=== PATIENT | female | born 1945 | race Caucasian/White ===

== ENCOUNTER 2020-04-02 15:40 | Outpatient (CLI) | payer OTHER, SELFPAY ==
--- NOTE | ~2020-04-02 | XR_ITS ---
EXAMINATION: XR knee RT 3V DATE: 04/02/2020 16:55 INDICATION: Right knee pain. TECHNIQUE: 3 views of right knee were obtained. COMPARISON: None. FINDINGS: Bone alignment is normal. No fracture. Joint spaces are well maintained. There is no knee j oint effusion. IMPRESSION: 1. Normal right knee. Reviewed, dictated and finalized at location D. IMPRESSION: 1. Normal right knee.
--- NOTE | ~2020-04-02 | US_ITS ---
EXAMINATION: US venous doppler LE RT DATE: 04/02/2020 16:22 INDICATION: Right lower limb pain TECHNIQUE: Grayscale ultrasound images without and with compression and Doppler ultrasound images of the right lower extremity veins were obtained. COMPARISON: None. FINDINGS: The visualized portions of right common femoral vein, profunda (deep) femoral vein, femoral vein, pop liteal vein, peroneal trunk, posterior tibial veins, gastrocnemius vein and greater saphenous vein ou tflow are patent. IMPRESSION: 1. No deep venous thrombosis in the right lower limb. Reviewed, dictated and finalized at location A.
== END 2020-04-02 15:41 | disposition home or self-care (01) ==
PROVIDERS: PCP Internal Medicine; Visit Provider Nurse Practitioner
DX: R60.0 Localized edema (principal); M25.561 Pain in right knee
CPT/HCPCS: 73562; 93971

== ENCOUNTER → 2020-04-30 12:49 | Outpatient (CLI) | payer OTHER, SELFPAY ==
--- NOTE | ~2020-04-30 | MR_ITS ---
EXAMINATION: MR knee RT wo con DATE: 04/30/2020 13:40 INDICATION: Right knee pain TECHNIQUE: Magnetic resonance imaging (MRI) of the right knee was performed without intravenous contr ast. Sequences included coronal PD-weighted FSE, coronal PD-weighted FS FSE, sagittal T2-weighted FS E, sagittal PD-weighted FS FSE and axial PD weighted fat saturated FSE. COMPARISON: None. FINDINGS: Medial compartment: Medial meniscus is normal. Partial-thickness cartilage loss and chondral surface regularity along the weightbearing medial femoral condyle and medial tibial plateau. Lateral compartment: There is a small radial tear involving the inner third of the body of the lateral meniscus. Partial-t hickness cartilage loss with smooth chondral surface along the posterior weightbearing lateral femora l condyle. Patellofemoral compartment: Deep chondral ulceration at the lateral aspect of the medial patellar facet with underlying mild suba rticular edema. Additional partial thickness cartilage loss at the apical ridge and lateral facet wit h deep fissuring and additional mild subarticular edema at the apical ridge. Trochlear cartilage appe ars relatively preserved. Ligaments and tendons: Anterior and posterior cruciate ligaments are normal. The medial collateral ligament and fibular bernie ateral ligament complex are normal. Small enthesophytes at the distal aspect of the quadriceps tendon . The patellar tendon is normal. The visualized medial and lateral hamstring tendons as well as the i liotibial band are normal. Fluid: Physiologic amount of fluid in the joint space. No loose osteochondral bodies identified. Mild prepat ellar edema without discrete bursal fluid collection. Osseous/other: Normal marrow signal aside from a mild subarticular edema at the patella. No fracture or pathologic m arrow replacing process. There is mild fatty atrophy in the visual is distal aspect of the semimembra nosus. IMPRESSION: 1. Radial tear at the lateral meniscus. 2. Mild medial and patellofemoral osteoarthritis with moderate grade chondral malacia the former and high-grade patellar chondromalacia at the latter. Reviewed, dictated and finalized at location A. E CHEF IMPRESSION: 1. Radial tear at the lateral meniscus. 2. Mild medial and patellofemoral osteoarthritis with moderate grade chondral m alacia the former and high-grade patellar chondromalacia at the latter.
== END ==
PROVIDERS: PCP Internal Medicine; Visit Provider Nurse Practitioner Family
DX: S83.281A Other tear of lateral meniscus, current injury, right knee, initial encounter (principal); X58.XXXA Exposure to other specified factors, initial encounter; M17.11 Unilateral primary osteoarthritis, right knee
CPT/HCPCS: 73721

== ENCOUNTER 2020-07-27 07:35 | Outpatient (CLI) | payer OTHER, SELFPAY ==
--- NOTE | ~2020-07-27 | DEXA_ITS ---
Bone Density Report Name: Florinda Cano Age: 75 Sex: Female Ethnicity: White Date of : 1945 Indication: postmenopausal; Referring Provider: KELL LEE Study: Bone densitometry was performed. Exam Date: July 27, 2020 Accession number: [id number] Bone Density: Region BMD T-score Z-score Classification AP Spine (L2, L3, L4) 0.926 -1.4 1.0 Osteopenia Femoral Neck (Left) 0.708 -1.3 0.7 Osteopenia Total Hip (Left) 0.894 -0.4 1.3 Normal Total Hip Bilateral Avg 0.881 -0.5 1.2 Normal Femoral Neck (Right) 0.635 -1.9 0.1 Osteopenia Total Hip (Right) 0.868 -0.6 1.1 Normal World Health Organization criteria for BMD impression classify patients as: Normal (T-score at or above -1.0), Osteopenia (T-score between -1.0 and -2.5), or Osteoporosis (T-score at or below -2.5). 10-year Fracture Risk(1): Major Osteoporotic Fracture 11% Hip Fracture 2.2% Reported Risk Factors: [place] (), Neck BMD=0.635, BMI=41.2 (1) FRAX(R) Version 3.08. Fracture probability calculated for an untreated patient. Fracture probability may be lower if the patient has received treatment. Clinical Information Provided by Patient: Patient maximum height was 62 Menopause Age: 52 No regular weight bearing exercise Onset of menses at age 15 Number of children 3 Impression: The patient has low bone mass, based on the Right Femoral Neck T-score. The patient has an estimated ten-year risk of hip fracture of 2.2% and an estimated ten-year risk of major fracture of 11%, based on the WHO FRAX algorithm. Discussion: BONE DENSITY IS LOW AT ONE OR MORE SKELETAL SITES. This patient's lowest T-score is low at one or more skeletal sites. It meets the World Health Organization's (WHO) criteria for ?low bone mass? (T-score between -1.0 and -2.5). The patient's 10-year risk of fracture as calculated by FRAX is less than the threshold where pharmacological therapy is recommended by the National Osteoporosis Foundation (NOF). However, all treatment decisions require clinical judgment and consideration of individual patient factors, including patient preferences, comorbidities, previous drug use, risk factors not captured in the FRAX model (e.g., frailty, falls, vitamin D deficiency, increased bone turnover, interval significant decline in bone density) and possible under or overestimation of fracture risk by FRAX. The patient should follow a healthful lifestyle (good nutrition with adequate calcium and vitamin D, and appropriate weight-bearing exercise). Follow-Up: Consider repeating this study in 2 to 3 years to reassess this patient's status, or sooner if there is some new clinical indication. Reported by: [facility] on 07/27/2020 8:08:00 AM. Reviewed, dictated and finalized at loca
--- NOTE | ~2020-07-27 | MM_ITS ---
EXAMINATION: MM scrn laila implant BI w orin HISTORY: Screening mammogram TECHNIQUE: Craniocaudal and mediolateral oblique 3-D tomosynthesis images with implant displacement a nd synthetic 2-D images were generated. Craniocaudal and mediolateral oblique views of the breasts wi thout implant displacement were obtained using full field digital mammography. CAD analysis was submi tted and interpreted. COMPARISON: 07/18/2016 BREAST PARENCHYMAL COMPOSITION: There are scattered areas of fibroglandular density. FINDINGS: Scattered benign-appearing calcifications are present. There is no evidence of suspicious m ass, calcification, or architectural distortion to suggest malignancy in either breast. There has bee n no suspicious interval change. IMPRESSION: 1. No mammographic evidence of malignancy. 2. Recommend routine screening mammography in one year. BI-RADS Category 2: Benign finding(s). Reviewed, dictated and finalized at location A. [employer]
== END 2020-07-27 07:36 | disposition home or self-care (01) ==
LOC: ANHIMG 07:39
PROVIDERS: PCP Internal Medicine; Visit Provider Internal Medicine
DX: Z12.31 Encounter for screening mammogram for malignant neoplasm of breast (principal); Z78.0 Asymptomatic menopausal state; M85.89 Other specified disorders of bone density and structure, multiple sites
CPT/HCPCS: 77063; 77067; 77080

== ENCOUNTER 2020-10-12 07:01 | Outpatient (CLI) | payer OTHER, SELFPAY ==
[2020-10-12 07:48] LABS: Alanine Aminotransferase 14 U/L (4-35); Albumin Level 4.1 g/dL (3.5-5.1); Alkaline Phosphatase 41 U/L (38-126); Anion Gap 7 mmol/L (8-16); Aspartate Amino Transferase 21 U/L (14-36); Bilirubin,Total 0.6 mg/dL (0.2-1.3); Blood Urea Nitrogen 17 mg/dL (7-17); Carbon Dioxide 26 mmol/L (22-30); Chloride 107 mmol/L (98-107); Cholesterol 183 mg/dL (0-200); Estimated Glomerular Filt Rate > 60; Glucose 100 mg/dL (65-105); HDL Direct 46 mg/dL; Potassium 3.8 mmol/L (3.4-5.0); Sodium 140 mmol/L (137-145); Triglycerides 135 mg/dL (<150)
[2020-10-12 07:59] LABS: LDL Cholesterol Direct 110 mg/dL
== END 2020-10-12 07:02 | disposition home or self-care (01) ==
PROVIDERS: PCP Internal Medicine; Visit Provider Internal Medicine
DX: E78.5 Hyperlipidemia, unspecified (principal); E03.9 Hypothyroidism, unspecified; I10 Essential (primary) hypertension; Z79.899 Other long term (current) drug therapy
CPT/HCPCS: 36415; 80053; 80061; 84443

== ENCOUNTER 2020-11-12 13:19 | Outpatient (CLI) | payer OTHER, SELFPAY ==
--- NOTE | 2020-11-12 13:23 | ECHO_ITS ---
Patient Info Name: Florinda Cano Age: 75 years : 1945 Gender: Female Ht: 62 in Wt: 238 lbs BSA: 2.24 m2 HR: 61 bpm BP: 188 / 92 mmHg Technical Quality: Fair Exam Date: 11/12/2020 1:51 PM Exam Location: [facility] Patient Status: Outpatient Admit Date: 11/12/2020 Staff Ordering Physician: Michael Wiggins DO Skewer Up: Sumi Brown RDCS Attending Provider: Michael Wiggins DO Referring Physician: Feliciano العلي; Exam Type: CA echo doppler color flow Study Info Indications I50.32 - Chronic diastolic (congestive) heart failure Complete two-dimensional, color flow and Doppler transthoracic echocardiogram is performed. Summary 1. Complete two-dimensional, color flow and Doppler transthoracic echocardiogram is performed. 2. Left ventricular chamber dimension is normal. 3. Left ventricular systolic function is normal, estimated at 65-70%. 4. There is mildly increased left ventricular wall thickness. 5. The left ventricular diastolic function is grade III diastolic dysfunction. 6. E/e' 21 is elevated. 7. Global longitudinal strain is abnormal at -14.6%. 8. Left atrial chamber dimension is mildly enlarged. 9. Right atrial chamber dimension is mildly enlarged. 10. There is moderate aortic valve sclerosis. 11. There is mild aortic valve regurgitation. 12. The mitral valve has moderately calcified annulus. 13. There is mild mitral valve regurgitation. 14. There is mild tricuspid valve regurgitation. 15. Severe pulmonary hypertension, estimated pulmonary arterial systolic pressure is 67 mmHg. Left Ventricle E/e' 21 is elevated. Global longitudinal strain is abnormal at -14.6%. Left ventricular chamber dimension is normal. Left ventricular systolic function is normal, estimated at 65-70%. There is mildly increased left ventricular wall thickness. The left ventricular diastolic function is grade III diastolic dysfunction. Right Ventricle Right ventricular systolic function is normal with normal TAPSE 3.3 cm. Right ventricular chamber dimension is normal. Left Atria Left atrial chamber dimension is mildly enlarged. Right Atria Right atrial chamber dimension is mildly enlarged. Aortic Valve The aortic valve is trileaflet. There is moderate aortic valve sclerosis. There is no aortic valve stenosis. There is mild aortic valve regurgitation. Pulmonic Valve There is no pulmonic regurgitation. Mitral Valve The mitral valve has moderately calcified annulus. There is no mitral valve stenosis. There is mild mitral valve regurgitation. Tricuspid Valve There is mild tricuspid valve regurgitation. Severe pulmonary hypertension, estimated pulmonary arterial systolic pressure is 67 mmHg. Pericardium/Pleural There is no pericardial effusion. Inferior Vena Cava Normal inferior vena cava with >50% collapse upon inspiration consistent with normal right atrial pressure, 5 mmHg. Aorta The aortic root size at the sinus of Valsalva is normal. Left Ventricular Outflow Tract Name Value Normal LVOT 2D LVOT Diameter 2.0 cm LVOT Doppler LVOT Peak Gradient 6 mmHg
== END 2020-11-12 13:20 | disposition home or self-care (01) ==
PROVIDERS: PCP Internal Medicine; Visit Provider Internal Medicine Cardiovascular Disease
DX: I50.32 Chronic diastolic (congestive) heart failure (principal); I34.0 Nonrheumatic mitral (valve) insufficiency; I35.1 Nonrheumatic aortic (valve) insufficiency; I36.1 Nonrheumatic tricuspid (valve) insufficiency
CPT/HCPCS: 93306

== ENCOUNTER 2021-03-23 08:07 | Observation (INO) | payer OTHER, SELFPAY ==
[2021-03-23] VITALS (19 sets, daily range): BP systolic 105–189; BP diastolic 47–79; PULSE 54–76; RESP 16–24; TEMP 36.2–37.1; O2SAT 93–97
--- NOTE | ~2021-03-23 | CT_ITS ---
EXAMINATION: CT abdomen pelvis w con EXAM DATE: 03/23/2021 09:51 INDICATION: RLQ abd pain . Right-sided abdominal pain. TECHNIQUE: Spiral CT of the abdomen and pelvis was performed following intravenous injection of 100 m L Omnipaque 350. Axial, coronal and sagittal images of the abdomen and pelvis were reviewed. The do se-length product (DLP) for this examination was 1377.74 mGy-cm. The exposure was tailored according to patient size (auto mA exposure control), and iterative reconstruction (ASIR) was used as addition al dose reduction technique. There is no prior study for comparison. FINDINGS: Several appendicoliths. The appendix appears obstructed, dilated, fluid-filled and with adj acent inflammation. No adjacent abscess. Diameter up to about 1.1 cm. Acute appendicitis. There is left adrenal gland nodularity, probably individual nodules largest measuring 1.5 cm. These a re statistically most likely adenomas but not meeting density criteria on this exam. The liver, splee n, adrenal glands and pancreas are otherwise unremarkable. Gallbladder is unremarkable. No biliary obstruction. Small renal lesions likely cysts. Portal and splenic veins are patent. Kidneys enhanc e symmetrically. There is no hydronephrosis. The uterus is unremarkable. The bladder is unremark able. There is no retroperitoneal or pelvic lymphadenopathy. There is mild to moderate scattered a rteriosclerotic disease. There is small sliding gastroesophageal hiatal hernia. There is mild scattered colonic diverticulosi s. There is no adjacent inflammatory change to suggest diverticulitis. No free intraperitoneal gas. The heart is normal in size. There are no pericardial or pleural effusions. The lung bases are u nremarkable. There are no osteoblastic or osteolytic lesions identified. IMPRESSION: 1. Acute uncomplicated appendicitis. 2. Several left adrenal nodules statistically most likely adenomas but not meeting density criteria on this postcontrast CT. If patient has known history of primary malignancy, consider follow-up MR. 3. Mild scattered colonic diverticulosis. 4. Cardiomegaly. I discussed acute appendicitis with ALAN Goodson in the emergency department. Reviewed, dictated and finalized at location A. IMPRESSION: 1. Acute uncomplicated appendicitis. 2. Several left adrenal nodules statistically most likely adenomas but not christina ting density criteria on this postcontrast CT. If patient has known history of primary malignancy, consider follow-up MR. 3. Mild scattered colonic diverticulosis. 4. Cardiomegaly. I discussed acute appendicitis with ALAN Goodson in the emergency department.
[2021-03-23 08:59] LABS: Basophils Absolute Auto 0.1 K/mm3 (0.0-0.1); Basophils Percent Auto 0.3 % (0.2-1.2); Eosinophils Percent Auto 0.1 % (0-4.4); Hematocrit 42.4 % (37.0-47.0); Hemoglobin 13.5 g/dL (12.0-15.0); Immature Granulocyte Absolute 0.09 K/mm3 (0.00-0.031); Immature Granulocyte Percent A 0.5 % (0-0.5); Lymphocytes Absolute Auto 0.81 K/mm3 (0.9-3.2); Lymphocytes Percent Auto 4.1 % (18.3-44.2); Mean Corpuscular HGB Conc 31.8 g/dl (32-36); Mean Corpuscular Hemoglobin 30.7 pg (26-34); Mean Corpuscular Volume 96.4 fl (80-100); Monocytes Absolute Auto 1.4 K/mm3 (0.1-0.6); Monocytes Percent Auto 7.2 % (2.6-8.5); Neutrophils Absolute Auto 17.5 K/mm3 (1.3-6.7); Neutrophils Percent Auto 87.8 % (45.5-73.1); Platelet Count Result 305 k/mm3 (150-375); Red Cell Distribution Width 15.5 % (11.5-14.5); White Blood Count 19.9 K/mm3 (4.5-10.0)
[2021-03-23 09:02] LABS: Add Urine Microscopic? YES; Appearance Urine Clear (Clear); Bacteria Urine Trace /hpf; Bilirubin Urine Negative (Negative); Blood Urine Negative (Negative); Color Urine Yellow (Yellow); Glucose Urine UA Negative (Negative); Ketones Urine Negative (Negative); Leukocyte Esterase Ur Negative LEU/UL (Negative); Mucus Urine Rare /lpf; Nitrate Urine Negative (Negative); Protein Urine 1+ mg/dL (Negative); Specific Grav Ur 1.025 (1.001-1.035); Squamous Epithelial Cell Urine Moderate /hpf (Few); WBC Urine 0-3 /hpf
[2021-03-23 09:07] LABS: Alanine Aminotransferase 16 U/L (4-35); Albumin Level 4.4 g/dL (3.5-5.1); Alkaline Phosphatase 36 U/L (38-126); Anion Gap 9 mmol/L (8-16); Aspartate Amino Transferase 30 U/L (14-36); Bilirubin,Total 1.6 mg/dL (0.2-1.3); Blood Urea Nitrogen 24 mg/dL (7-17); Calcium 9.1 mg/dL (8.4-10.2); Carbon Dioxide 25 mmol/L (22-30); Chloride 106 mmol/L (98-107); Estimated CRCL calculation 58 ml/min; Estimated Glomerular Filt Rate > 60; Glucose 109 mg/dL (65-110); Potassium 4.5 mmol/L (3.4-5.0); Sodium 140 mmol/L (137-145)
--- NOTE | 2021-03-23 09:15 | ED.ABDPAIN ---
HPI - Abdominal Pain General Chief Complaint: Abdominal Pain Stated Complaint: RLQ Abd Pain Time Seen by Provider: 03/23/21 08:53 Source: patient and family Mode of arrival: ambulatory Limitations: physical limitation (hx of aphasia secondary to CVA) History of Present Illness HPI narrative: Patient is a 76 female with a history of CVA, HTN, hypothyroidism, diastolic CHF, presenting for evaluation of RLQ abdominal pain. Pain in RLQ radiating to groin. Pain is moderate in nature. Pain began overnight. No recent fever or chills, no nausea or vomiting. No dysuria or hematuria. No constipation or diarrhea. No chest pain or dyspnea. Pt has been compliant with her medications. Last oral intake was yesterday over 12 hours ago. No history of nephrolithiasis. Has seen Dr. Wiggins with cardiology in the past. No significant lower extremity edema on exam. Related Data Home Medications Medication Instructions Recorded Confirmed polysaccharide iron complex 150 mg 150 mg PO DAILY 04/20/20 12/10/20 iron capsule Allergies Allergy/AdvReac Type Severity Reaction Status Date / Time No Known Allergies Allergy Verified 03/23/21 08:29 Review of Systems Review of Systems: CONSTITUTIONAL: Denies fever, reporting chills, denies diaphoresis EYES: Denies visual changes, redness, or discharge. ENT: Denies rhinorrhea, congestion, sore throat, or otalgia. CARDIOVASCULAR: Denies chest pain, palpitations, or edema. RESPIRATORY: Denies cough or dyspnea. GASTROINTESTINAL: Reporting RLQ abd pain without nausea or vomiting GENITOURINARY: Denies dysuria or hematuria. SKIN: Denies rash or itching. MUSCULOSKELETAL: Denies back pain, joint pain, or myalgia. NEUROLOGIC: Denies headache, numbness, or weakness. 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 Chronic diastolic (congestive) heart failure Constipation, unspecified Degenerative joint disease of knee JETT (dyspnea on exertion) Gastroesophageal reflux disease History of stroke with residual deficit History of tobacco abuse Insomnia due to medical condition Iron deficiency anemia Medial meniscus tear Mixed hyperlipidemia Obesity DARRYL (obstructive sleep apnea) PAF (paroxysmal atrial fibrillation) Postmenopausal Right knee DJD SOB (shortness of breath) Stress fracture Thyroid disease Surgical History Surgical History No significant past surgical history Family History Family History Sibling Patient's brother is in good health Other Family history of colonic diverticulitis Hypertension Social History Social History Social History: Her , Kale, is her healthcare POA. Smoking packs per day: 1 Smoking cigarettes per day: 20.0 Years smoked: 50 Smoking pack-years: 50.00 Smoking status: Current every day smoker Tobacco type: cigarettes Second hand tobacco smoke exposure: No Smoking end date: 06/26/16 Alcohol intake: current Substance use: never Substance use type: does not use Living arrangements: with family Additional living arrangements comments: Occupation/Education: other Gender identity (if verbalized by the patient): Female Sexual Orientation (if Verbalized by the Patient): Straight or Heterosexual Exam Narrative: GENERAL: Awake, alert, conversant, + chilled per patient, uncomfortable appearing HEAD: Normocephalic, atraumatic. EYES: PERRLA and EOMI. ENT: Nares clear, no rhinorrhea or epistaxis. Mucous membranes moist. NECK: Supple. CHEST: No respiratory distress, breathing even and non labored HEART: Regular rate, sinus rhythm ABDOMEN:Non distended, tender in the RLQ, + guarding, non rigid EXTREMITIES: Normal r
[2021-03-23 09:46] LABS: Lipase < 10 U/L (23-300)
[2021-03-23] MEDS: SODIUM CHLORIDE 0.9% IV 1,000 ML 999 ML IV CONT ×2 (09:55→12:05)
[2021-03-23] MEDS: MORPHINE SULFATE (*CRX) 4 MG/ML INJ IV PUSH (09:55)
[2021-03-23] MEDS: ONDANSETRON INJ 4 MG/2 ML VIAL IV PUSH ×3 (09:55→19:54)
--- NOTE | 2021-03-23 10:12 | ECG_ITS ---
Measurements Intervals [place] Rate: 62 P: 67 RI: 201 QRS: 102 QRSD: 92 T: 31 QT: 388 QTc: 395 Interpretive Statements SINUS RHYTHM RIGHT AXIS DEVIATION DELAYED PRECORDIAL R/S TRANSITION BASELINE ARTIFACT- I, II, III, AVR BORDERLINE ECG Electronically Signed On 03-23-2021 12:19:56 CDT by Michael Wiggins D.O.
[2021-03-23 11:52] LABS: INR 1.7; Prothrombin Time 19.5 Seconds (11.1-14.7)
[2021-03-23 11:53] LABS: Partial Thromboplastin Time 38.9 SECONDS (22.3-36.8)
--- NOTE | 2021-03-23 12:16 | PM.IMHP ---
H&P: HPI History of Present Illness Date/Time: 03/23/21 12:16 Chief Complaint: RLQ abdominal pain Narrative: This is a 76-year-old obese female who has a past medical history significant for a stroke 2.5 years ago now on chronic oral anticoagulation, paroxysmal atrial fibrillation, diastolic heart failure, hypertension, COPD, and tobacco abuse. Following the stroke, she continues to have residual expressive aphasia, therefore her history is provided by her and review of her electronic medical record. She had a sudden onset of RLQ abdominal pain that awoke her from sleep around 2-3 AM this morning. She got up to sit in the recliner and her pain continued to worsen. This was aggravated by movement and walking. She also reports chills and nausea, but no vomiting. With the unrelenting abdominal pain, they decided to present to the ER for evaluation this morning. CT scan of the abdomen and pelvis showed acute uncomplicated appendicitis with multiple appendicoliths present in the appendix and no evidence of perforation. Incidentally noted was several left adrenal nodules statistically most likely adenomas, mild scattered colonic diverticulosis, and cardiomegaly. Labs revealed a white blood cell count of 19,900. Our service was contacted by the ED physician for surgical evaluation of acute appendicitis. The patient is now seen in the ER. She reports pain has improved with IV Morphine but is still present. No significant nausea at this time or other complaints. No history of this abdominal pain in the past. No previous abdominal surgeries. The last dose of Xarelto she took was at 7:00 AM yesterday morning. She follows Dr. Wiggins as an outpatient for Cardiology and her most recent echocardiogram was in October of 2020. This showed grade III diastolic dysfunction, EF 65-70%, moderate aortic valve sclerosis, mild AVR, mild MVR, mild TVR, and severe pulmonary hypertension. No EKG yet performed in the ER. Review of Systems Review of Systems: ROS unobtainable: Yes unobtainable due to medical condition (limited d/t expressive aphasia, see HPI) Integumentary/Breasts: Comments: Bruising on her left foot from dropping a mop on her foot. 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 artery Chronic diastolic (congestive) heart failure Constipation, unspecified Degenerative joint disease of knee JETT (dyspnea on exertion) Gastroesophageal reflux disease History of stroke with residual deficit History of tobacco abuse Insomnia due to medical condition Iron deficiency anemia Medial meniscus tear Mixed hyperlipidemia Obesity DARRYL (obstructive sleep apnea) PAF (paroxysmal atrial fibrillation) Postmenopausal Right knee DJD SOB (shortness of breath) Stress fracture Thyroid disease Surgical History Surgical History No significant past surgical history Family History Family History Sibling Patient's brother is in good health Other Family history of colonic diverticulitis Hypertension Social History Social History Social History: Her , Kale, is her healthcare POA. Smoking packs per day: 1 Smoking cigarettes per day: 20.0 Years smoked: 50 Smoking pack-years: 50.00 Smoking status: Current every day smoker Tobacco type: cigarettes Second hand tobacco smoke exposure: No Smoking end date: 06/26/16 Alcohol intake: current Substance use: never Substance use type: does not use Living arrangements: with family Additional living arrangements comments: Occupation/Education: other Gender identity (if verbalized by the patient): Female Sexual Orientation (if Verbalized by the Patient): Straight or Heterosexual
[2021-03-23] MEDS: LACTATED RINGERS 1,000 ML 30 ML IV CONT ×2 (13:26→16:45)
--- NOTE | 2021-03-23 13:33 | WPDHPUPDATE1 ---
History and Physical Update Update Date/Time: 03/23/21 13:33 History and Physical has been reviewed, including an updated exam of the patient. There are NO changes in the patient's condition. Risks, benefits, and alternatives have been discussed and questions answered. Patient agrees to proceed with procedure.
--- NOTE | 2021-03-23 13:34 | WPDANESEPPF ---
Anes - Initial Pre Proc Eval Procedure: Operation Date: 03/23/21 14:00 Proposed Procedures p Laparoscopic Appendectomy - Gopi Riggs MD Date/Time: 03/23/21 13:34 Surgeon: Gopi Riggs MD Pre Op Diagnosis: RLQ Abd Pain Patient Data Age: 76 Gender: F Height: 1.55 m Weight: 99.7 kg Last Vital Signs Temp 36.6 C 03/23/21 13:20 Pulse 65 03/23/21 13:20 Resp 18 03/23/21 13:20 BP 153/51 H 03/23/21 13:20 Pulse Ox 96 03/23/21 13:20 Allergies Allergy/AdvReac Type Severity Reaction Status Date / Time No Known Allergies Allergy Verified 03/23/21 13:23 Home Medications Medication Instructions Recorded Confirmed Type polysaccharide iron complex 150 mg 150 mg PO DAILY 04/20/20 12/10/20 History iron capsule amiodarone 200 mg tablet 100 mg PO DAILY #90 tablet 04/23/20 12/10/20 Rx levothyroxine 175 mcg tablet See Rx Instructions .ROUTE 12/07/20 12/10/20 Rx .COMPLEX #90 tablet furosemide 20 mg tablet See Rx Instructions .ROUTE 12/21/20 Rx .COMPLEX #90 tablet rivaroxaban 15 mg tablet See Rx Instructions .ROUTE 12/21/20 Rx .COMPLEX #90 tablet spironolactone 25 mg tablet See Rx Instructions .ROUTE 12/21/20 Rx .COMPLEX #90 tablet pravastatin 10 mg tablet See Rx Instructions .ROUTE 01/11/21 Rx .COMPLEX #90 tablet temazepam 15 mg capsule 15 mg PO QHS PRN #30 cap 03/15/21 Rx Laboratory Tests 03/23/21 03/23/21 03/23/21 08:43 08:43 08:43 WBC 19.9 K/mm3 H K/mm3 (4.5-10.0) RBC 4.40 M/mm3 M/mm3 (4.2-5.4) Hgb 13.5 g/dL g/dL (12.0-15.0) Hct 42.4 % % (37.0-47.0) MCV 96.4 fl fl (80-100) MCH 30.7 pg pg (26-34) MCHC 31.8 g/dl L g/dl (32-36) RDW 15.5 % H % (11.5-14.5) Plt Count 305 k/mm3 k/mm3 (150-375) MPV 11.0 fl H fl (7.4-10.4) Immature Gran % (Auto) 0.5 % % (0-0.5) Neut % (Auto) 87.8 % H % (45.5-73.1) Lymph % (Auto) 4.1 % L % (18.3-44.2) [place] % (Auto) 7.2 % % (2.6-8.5) Eos % (Auto) 0.1 % % (0-4.4) Baso % (Auto) 0.3 % % (0.2-1.2) Lymph # (Auto) 0.81 K/mm3 L K/mm3 (0.9-3.2) [place] # (Auto) 1.4 K/mm3 H K/mm3 (0.1-0.6) Eos # (Auto) 0.0 K/mm3 K/mm3 (0-0.3) Baso # (Auto) 0.1 K/mm3 K/mm3 (0.0-0.1) Abs Immat Gran (auto) 0.09 K/mm3 H K/mm3 (0.00-0.031) Absolute Neuts (auto) 17.5 K/mm3 H K/mm3 (1.3-6.7) Absolute Nucleated RBC 0.0 K/mm3 K/mm3 (0.0-0.012) Nucleated RBC % 0.0 % % (0.0-0.2) PT INR APTT Sodium 140 mmol/L mmol/L (137-145) Potassium 4.5 mmol/L mmol/L (3.4-5.0) Chloride 106 mmol/L mmol/L (98-107) Carbon Dioxide 25 mmol/L mmol/L (22-30) Anion Gap 9 mmol/L mmol/L (8-16) BUN 24 mg/dL H mg/dL (7-17) Creatinine 0.80 mg/dL mg/dL (0.7-1.0) Estim Creat Clear Calc 58 ml/min ml/min Estimated GFR > 60 (59 - ) Glucose 109 mg/dL mg/dL (65-110) Calcium 9.1 mg/dL mg/dL (8.4-10.2) Total Bilirubin 1.6 mg/dL H mg/dL (0.2-1.3) AST 30 U/L U/L (14-36) ALT 16 U/L U/L (4-35) Alkaline Phosphatase 36 U/L L U/L (38-126) Total Protein 7.0 g/dL g/dL (6.3-8.2) Albumin 4.4 g/dL g/dL (3.5-5.1) Lipase < 10 U/L L U/L (23-300) Urine Color Yellow (Yellow) Urine Appearance Clear (Clear) Urine pH 7.0 (5.0-9.0) Ur Specific [place] 1.025 (1.001-1.035) Urine Protein 1+ mg/dL H mg/dL (Negative) Urine Glucose (UA) Negative mg/dL mg/dL (Negative) Urine Ketones Negative mg/dL mg/dL (Negative) Ur Blood (Man) Negative (Negative) Urine Nitrate Negative (Negative) Urine Bilirubin
[2021-03-23] MEDS: BUPIVACAINE/EPINEPHRINE 0.25% 50 ML VIAL 30 ML INFILTRATE (14:39)
--- NOTE | 2021-03-23 15:48 | W.PM.PROC2 ---
Procedure Note - Detailed Date of Procedure 03/23/21 Pre-op Diagnosis Acute uncomplicated appendicitis Post-op Diagnosis same Procedure Performed laparoscopic appendectomy Surgeon Gopi Riggs MD [facility] BARNEY. OR Director Media Anesthesia general Indications See admission H&P. Patient had appropriate symptoms and acute uncomplicated appendicitis by CT. She has significant risk for surgery but had appendicoliths so treatment with antibiotics only would have a higher than average failure risk. Therefore discussion was held with Anesthesia and we decided she could have general anesthesia and the procedure. Findings Acute apparently possibly gangrenous appendicitis without signs of perforation. Description of Procedure The patient was seen again in the ER Room 7 . The risks, benefits, complications, treatment options, and expected outcomes were discussed with the patient and/or family. The possibilities of reaction to medication, pulmonary aspiration, perforation of viscus, bleeding, recurrent infection, finding a normal appendix, the need for additional procedures, failure to diagnose a condition, and creating a complication requiring transfusion or operation were discussed. There was concurrence with the proposed plan and informed consent was obtained. The site of surgery was properly noted/marked. The patient was taken to Operating Room, and a time out was preformed which identified this as the proper patient, and the procedure verified as laparoscopic appendectomy, possible open. The patient was placed in the supine position and general anesthesia was induced, along with placement of orogastric tube, SCD hose, and a Soto catheter. The abdomen was prepped and draped in a sterile fashion. A 5 mm umbilical incision was made and the peritoneal cavity was accessed using the Veress needle technique. Once the abdomen was insufflated to 14 mmHg pressure a 5 mm XL trocar over the 0? 5 mm scope was carefully twisted into the abdomen via the umbilicus. The pneumoperitoneum was then established to steady pressure of 12 mm Hg. A 12 mm laparoscopic port was placed through a transverse suprapubic incision. An additional 5 mm cannula was placed in the left upper quadrant of the abdomen at a level half way between the level of the umbilicus and the left costal margin under direct vision. A careful evaluation of the entire abdomen was carried out. The patient was placed in Trendelenburg and left lateral decubitus position. The small intestines were retracted in the cephalad and left lateral direction away from the pelvis and right lower quadrant. The patient was found to have an enlarged and inflamed appendix that was extending [into the right side of the pelvis. There was no evidence of perforation. The appendix was carefully dissected. Once it was free a 45 mm ethicon endogastroentestinal stapler with a vascular load was placed across the mesoappendix. This was fired and hemostasis was checked along the staple line and appeared to be adequate. Then another cartridge containing a vascular load applied and the stapler then placed right to the base of the appendix. This was also fired and bleeding was checked. The appendix was then divided at its base using the same 45 mm stapler with a 3.5 mm bowel wall load. Minimal appendiceal stump was left in place. There was no evidence of bleeding, leakage, or complication after division of the appendix at its junction with the cecum.. The appendix was then placed in an endobag which had been brought through the 12 mm suprapubic port site. The appendix and the bag were then extracted through this larger port site in the suprapubic position. The suprapubic port site was closed using a #1 Polysorb suture passed with a Shahram-Walker cone and needle suture passer at the level of the fascia. The trocar site skin wounds were closed using 4-0 undyed Monocryl and surgical glue. Instrument, sponge, and needle counts were c
[2021-03-23] MEDS: fentaNYL CITRATE INJ (*CRX) 100 MCG/2 ML VIAL 25 MCG IV PUSH (16:45)
[2021-03-23] MEDS: HALOPERIDOL LACTATE 5 MG/ML VIAL 1 MG IV PUSH (16:57)
[2021-03-23] MEDS: LACTATED RINGERS 1,000 ML 60 ML IV CONT (18:01)
--- NOTE | 2021-03-23 18:17 | ADMGEN ---
This patient, Florinda Cano, was admitted to Medical Room 345-01. Patient/family oriented to hospital policies and general routines including ID bracelet, bed and alarms, visiting hours, pain management, procedures, bathroom and other care routines, personal items, smoking policy, room service/diet, and visiting hours. Information on how to activate the Rapid Response Team has been discussed. Patient/Family are encouraged to report perceived risks to care and to ask questions if they do not understand what they are told or what they should do. Patient in bed resting comfortably at this time. Daughter at bedside. Will continue to monitor.
[2021-03-23] MEDS: HYDROcodone/acetaminophen (*CRX) 5-325 MG TABLET 1 TAB PO (22:36)
--- NOTE | 2021-03-23 23:04 | PM.IMCN ---
Assessment and Plan Assessment and plan (1) History of appendectomy: Code(s): Z90.49 - Acquired absence of other specified parts of digestive tract Status: Acute Assessment and Plan: Postop care per surgical team. Patient is currently on clear liquids but is still complaining of some nausea. The patient has some leukocytosis and it looks like she i had a dose of Zosyn in the emergency room. (2) Chronic atrial fibrillation: Code(s): I48.20 - Chronic atrial fibrillation, unspecified Status: Acute Assessment and Plan: The patient Xarelto had been placed on hold due to the surgery. Resume Xarelto as per surgery team. Continue with patient's amiodarone. At this time the patient's heart rate is regular. Last reported heart rate was 55. (3) HTN (hypertension), benign: Code(s): I10 - Essential (primary) hypertension Status: Acute Assessment and Plan: Continue with amiodarone, spironolactone and Lasix (4) COPD (chronic obstructive pulmonary disease): Qualifiers: COPD type: unspecified COPD Qualified Code(s): J44.9 - Chronic obstructive pulmonary disease, unspecified Code(s): J44.9 - Chronic obstructive pulmonary disease, unspecified Status: Acute Assessment and Plan: Reportedly the patient stop smoking which she had her stroke. (5) Aphasia following cerebral infarction: Code(s): I69.320 - Aphasia following cerebral infarction Status: Acute Assessment and Plan: Related to her stroke. The patient is able to answer yes and no and answer some questions. But otherwise she is unable to communicate and the daughter is at the bedside. (6) Adult hypothyroidism: Code(s): E03.9 - Hypothyroidism, unspecified Status: Acute Assessment and Plan: Continue with levothyroxine and check thyroid level. (7) History of stroke with residual deficit: Code(s): I69.30 - Unspecified sequelae of cerebral infarction Status: Acute Assessment and Plan: Patient has difficulty expressing herself. (8) Mixed hyperlipidemia: Code(s): E78.2 - Mixed hyperlipidemia Status: Acute Assessment and Plan: Continue with pravastatin. HPI Data of Consult Consult date: 03/23/21 Requesting Physician: Gopi Riggs MD Primary Care Provider: Josesito Richardson DO Consult Narrative Narrative: Florinda Cano is a 76 year old female who has a history of CVA with expressive aphasia, hypertension, hypothyroidism and diastolic congestive heart failure. The patient presented to the emergency room with complaints of right lower quadrant abdominal pain. It was moderate in nature. The pain became more severe overnight. No fever chills. She did have any nausea than but now has nausea. Patient had not eaten in a drink anything for 12 hours. The patient has a history of paroxysmal atrial fibrillation and had her last Xarelto at 7:00 a.m. yesterday morning. White count 19.9. Abdominal pelvis CT was read as. 1 Acute uncomplicated appendicitis. 2. Several left adrenal nodules statistically most likely adenomas but not meeting density criteria on this postcontrast CT. If patient has known history of primary malignancy, consider follow-up MR. 3. Mild scattered colonic diverticulosis. 4. Cardiomegaly. The patient was taken to the OR per Dr. Riggs for laparoscopic appendectomy. See operative note. The patient is complaining of some nausea postoperatively. The patient is being admitted to observation status per surgery and we have been consulted on the date of service of 03/23/2021. I thank the surgical team for allowing cyst consult on this patient. Review of Systems Review of Systems: ROS unobtainable: Yes unobtainable due to mental status (daughter is at the bedside answering questions. History of CVA w aphasia) PMFSH Past Medical History Medical History Melissa
[2021-03-24] VITALS (12 sets, daily range): BP systolic 139–153; BP diastolic 55–66; PULSE 48–64; RESP 17–24; TEMP 36.3–36.7; O2SAT 92–98
--- NOTE | 2021-03-24 02:48 | PCRCNOTE ---
patient/daughter refused use of hospital unit and stated that the patient does not use a cpap/bipap at home
[2021-03-24] MEDS: LEVOTHYROXINE SODIUM 100 MCG TABLET PO (05:40)
[2021-03-24] MEDS: LEVOTHYROXINE SODIUM 75 MCG TABLET PO (05:40)
[2021-03-24 06:21] LABS: Hematocrit 40.6 % (37.0-47.0); Hemoglobin 13.2 g/dL (12.0-15.0); Mean Corpuscular HGB Conc 32.5 g/dl (32-36); Mean Corpuscular Hemoglobin 30.8 pg (26-34); Mean Corpuscular Volume 94.6 fl (80-100); Mean Platelet Volume 11.1 fl (7.4-10.4); Platelet Count Result 328 k/mm3 (150-375); Red Blood Count 4.29 M/mm3 (4.2-5.4); Red Cell Distribution Width 15.7 % (11.5-14.5); White Blood Count 30.3 K/mm3 (4.5-10.0)
[2021-03-24 06:34] LABS: Anion Gap 12 mmol/L (8-16); Blood Urea Nitrogen 26 mg/dL (7-17); Carbon Dioxide 22 mmol/L (22-30); Chloride 106 mmol/L (98-107); Estimated CRCL calculation 58 ml/min; Estimated Glomerular Filt Rate > 60; Glucose 127 mg/dL (65-110); Lactate Dehydrogenase 477 U/L (313-618); Potassium 4.4 mmol/L (3.4-5.0); Sodium 140 mmol/L (137-145)
[2021-03-24] MEDS: ONDANSETRON INJ 4 MG/2 ML VIAL IV PUSH (06:48)
[2021-03-24 07:02] LABS: Lactic Acid Reflex 2.1 mmol/L (0.7-2.1)
[2021-03-24 09:15] LABS: Reflex Lactic Acid Yes or No Add Lactic
[2021-03-24] MEDS: POLYSACCHARIDE IRON COMPLEX 150 MG CAPSULE PO (09:33)
[2021-03-24] MEDS: SPIRONOLACTONE 25 MG TABLET PO (09:34)
[2021-03-24] MEDS: AMIODARONE HCL 100 MG TABLET PO (09:34)
[2021-03-24] MEDS: ENOXAPARIN 40 MG/0.4 ML SYRINGE SUB-Q (09:35)
[2021-03-24] MEDS: PRAVASTATIN SODIUM 10 MG TABLET PO (09:35)
[2021-03-24] MEDS: FUROSEMIDE 20 MG TABLET BY MOUTH (09:35)
[2021-03-24] MEDS: SENNA/DOCUSATE SODIUM TABLET 2 TAB PO (09:35)
[2021-03-24] MEDS: LACTATED RINGERS 1,000 ML 60 ML (09:36)
[2021-03-24 09:51] LABS: Lactic Acid 2.1 mmol/L (0.7-2.1)
--- NOTE | 2021-03-24 10:27 | PM.IMPN ---
Progress Note: A&P Assessment and Plan (1) History of appendectomy: Code(s): Z90.49 - Acquired absence of other specified parts of digestive tract Status: Acute Assessment and Plan: Postop day 1 and doing well and tolerating clears -white blood cell count up today, could be reactionary due to vomiting and surgery. No fevers or other signs of systemic infection -continue to advance diet per surgery -pain medications adjusted, avoiding hydrocodone due to dizziness (2) Chronic atrial fibrillation: Code(s): I48.20 - Chronic atrial fibrillation, unspecified Status: Acute Assessment and Plan: Patient appeared to be in sinus bradycardia at this time -not on any rate controlling medications -continue amiodarone (3) HTN (hypertension), benign: Code(s): I10 - Essential (primary) hypertension Status: Acute Assessment and Plan: Last blood pressure 153/66 -continue Lasix and spironolactone (4) COPD (chronic obstructive pulmonary disease): Qualifiers: COPD type: unspecified COPD Qualified Code(s): J44.9 - Chronic obstructive pulmonary disease, unspecified Code(s): J44.9 - Chronic obstructive pulmonary disease, unspecified Status: Acute Assessment and Plan: Chronic and controlled at this time (5) Aphasia following cerebral infarction: Code(s): I69.320 - Aphasia following cerebral infarction Status: Acute Assessment and Plan: Related to her stroke in the past. -recommend continuing Xarelto when able (6) Adult hypothyroidism: Code(s): E03.9 - Hypothyroidism, unspecified Status: Acute Assessment and Plan: Continue levothyroxine -TSH within normal limits (7) History of stroke with residual deficit: Code(s): I69.30 - Unspecified sequelae of cerebral infarction Status: Acute Assessment and Plan: As above (8) Mixed hyperlipidemia: Code(s): E78.2 - Mixed hyperlipidemia Status: Acute Assessment and Plan: Continue with pravastatin Time Spent With Patient Time with patient: 25 - 35 minutes Subjective Date/time seen: 03/24/21 10:27 Interval history: Pt is a 76-year-old female here for appendicitis. Patient was seen today and does have expressive aphasia but was able to answer most questions and daughter was at bedside. She states her mother did get a little nauseated this morning but the Zofran helped. She has been having some dizziness when she gets up and states that sometimes the hydrocodone makes her dizzy. She denies chest pain, shortness of breath, leg swelling, fevers or chills. Review of Systems Review of Systems: All systems reviewed & are unremarkable except as noted in HPI and below Exam Narrative: General: Well developed well nourished patient in NAD HEENT: normocephalic Neck: supple Neuro: Alert and oriented. Expressive aphasia. Upper extremity and lower extremity strength 5/5 CV:RRR Resp: Crackles at the bases, she does not take very deep breaths. Abd: Soft, non distended. No pain to palpation. Positive bowel sounds but few. Incision sites clean and dry Extremities: No swelling, erythema, or pain to palpation. Objective Data Vital Signs Vital Signs: Vital Signs - 24 hr 03/23/21 13:20 03/23/21 15:43 03/23/21 15:45 Temperature 97.9 F 98 F Pulse Rate 65 76 61 Respiratory Rate 18 21 H 24 H Blood Pressure 153/51 H 189/79 H 176/70 H Pulse Oximetry 96 94 95 03/23/21 16:00 03/23/21 16:15 03/23/21 16:30 Temperature Pulse Rate 60 67 57 L Respiratory Rate 23 H 19 20 Blood Pressure 160/61 H 160/61 H 134/55 L Pulse Oximetry 95 94 96 03/23/21 16:45 03/23/21 17:00 03/23/21 17:15 Temperature Pulse Rate 57 L 57 L 56 L Respiratory Rate 20 20 20 Blood Pressure 137/60 105/63 118/53 L Pulse Oximetry 96 96 96 03/23/21 17:27 03/23/21 17:50 03/23/21 18:05 Temperature 97.5 F
[2021-03-24] MEDS: ACETAMINOPHEN 500 MG TABLET 1000 MG PO ×2 (11:49→18:13)
--- NOTE | 2021-03-24 13:12 | PM.PNGS ---
Progress Note: A&P Assessment and Plan (1) Acute appendicitis: Code(s): K35.80 - Unspecified acute appendicitis Status: Acute Assessment and Plan: POD#1 and doing well. She had issues with nausea and dry heaving overnight, which seems to have subsided. Could be related to an adverse reaction to the [place]. Will advance her diet to full liquids and see how she tolerates this. Continue antiemetics PRN. Avoid narcotics, will D/C [place]. Pain seems well-controlled this morning with Tylenol, will monitor. WBC up to 30,000 today. She is afebrile and does not show any signs of systemic infection. Could be related to surgery and her vomiting. Will repeat labs tomorrow morning. Encouraged increasing activity and IS use. (2) Anticoagulant long-term use: Code(s): Z79.01 - buttermaker helper (current) use of anticoagulants Status: Acute Assessment and Plan: Okay from our standpoint to restart the Xarelto either tonight or in the morning. (3) History of stroke with residual deficit: Code(s): I69.30 - Unspecified sequelae of cerebral infarction Status: Acute (4) Paroxysmal atrial fibrillation with rapid ventricular response: Code(s): I48.0 - Paroxysmal atrial fibrillation Status: Acute Assessment and Plan: RRR on exam today. Currently on her home dose of amiodarone. Management per Hospitalist. (5) Morbid (severe) obesity due to excess calories: Code(s): E66.01 - Morbid (severe) obesity due to excess calories Status: Acute Additional Plan I have discussed the plan of care with Dr. Riggs. Subjective Subjective Date/Time Seen: 03/24/21 13:12 Post Op day: 1 (lap appendectomy) Patient reports: feels better, voiding w/o difficulty, no flatus, no bowel movement and afebrile Interval history: Patient seen and examined today with her daughter at the bedside for helping with communication since her mother has issues with her speech as a residual effect from her stroke. Seems her abdominal pain is well-controlled this morning. She had [place] overnight without eating and began to have nausea and a lot of dry heaving per the daughter. The patient denies any abdominal pain at the time of my exam. Her nausea has subsided and she is feeling well now, actually hungry. No other complaints at this time. Review of Systems Review of Systems: All systems reviewed & are unremarkable except as noted in HPI and below Constitutional: Constitutional: Reports as per HPI, Reports no additional constitutional complaints, Denies chills and Denies fever(s) Cardiovascular: Cardiovascular: Reports no additional cardiovascular complaints, Denies chest pain and Denies leg edema Respiratory: Respiratory: Reports no additional respiratory complaints, Denies cough and Denies dyspnea Gastrointestinal: Gastrointestinal: Reports as per HPI and Reports no additional gastrointestinal complaints Exam Const: General: comfortable, no acute distress, alert and awake Orientation/consciousness: patient oriented x3 Resp: Effort & Inspection: normal respiratory effort Auscultation: clear to auscultation bilaterally Cardio: Rate: regular rate Rhythm: regular rhythm GI: Inspection: incision (Abdominal incisions clean and dry, glue intact.) and obesity GI Palp: Yes Soft to palpation, Yes Tenderness to palpation present (GI) (incisional) and No Guarding due to palpation present (GI) Auscultation: normal bowel sounds Skin: General skin exam: normal color Neuro: General: moves all extremities and no focal motor deficits Speech: Expressive aphasia present Extrem: General: no clubbing, cyanosis or edema and no calf tenderness Psych: Mental Status: mental status grossly normal Insight: Fair insight present (Psych) and Limited insight present (Psych) Objective Data Vital Signs Vital Signs: Vital Signs - 24 hr 03/23/21 13:20 03/23/21 15:43 03/23/21 15:45 Temperature 97.9 F 98 F Pulse Rate 65 76 61 Respirato
--- NOTE | 2021-03-24 14:06 | WPDANESPN ---
Anes - Prog Note Post-Op Date/Time: 03/24/21 14:06 Cardiovascular status: normal Respiratory status: normal Airway patency: baseline Mental status: baseline Post-Op hydration status: normal Vital Signs: Last Vital Signs Temp 36.7 C 03/24/21 09:17 Pulse 64 03/24/21 09:34 Resp 20 03/24/21 09:17 BP 139/55 L 03/24/21 09:17 Pulse Ox 98 03/24/21 09:17 Pain Score (VAS): 0 I/O: Intake & Output 03/23/21 03/24/21 03/24/21 23:59 07:59 15:59 Intake Total 550 350 720 Output Total 200 Balance 350 350 720 Laboratory Tests 03/24/21 05:58 03/24/21 05:58 03/24/21 03/24/21 03/24/21 05:58 05:58 05:58 WBC 30.3 H RBC 4.29 Hgb 13.2 Hct 40.6 MCV 94.6 MCH 30.8 MCHC 32.5 RDW 15.7 H Plt Count 328 MPV 11.1 H Sodium 140 Potassium 4.4 Chloride 106 Carbon Dioxide 22 Anion Gap 12 BUN 26 H Creatinine 0.80 Estim Creat Clear Calc 58 Estimated GFR > 60 Glucose 127 H Lactic Acid 2.1 Calcium 9.0 Lactate Dehydrogenase 477 TSH (Reflex) 03/24/21 03/24/21 05:58 09:29 WBC RBC Hgb Hct MCV MCH MCHC RDW Plt Count MPV Sodium Potassium Chloride Carbon Dioxide Anion Gap BUN Creatinine Estim Creat Clear Calc Estimated GFR Glucose Lactic Acid 2.1 Calcium Lactate Dehydrogenase TSH (Reflex) 3.870 Post-procedural complaints: none Patient Feedback: Patient satisfied with anesthetic care.
[2021-03-25] VITALS: PULSE 47
[2021-03-25 04:00] VITALS: PULSE 49
[2021-03-25 04:53] VITALS: BP 154/84; PULSE 49; RESP 16; TEMP 36.1; O2SAT 93
[2021-03-25] MEDS: LEVOTHYROXINE SODIUM 75 MCG TABLET PO (05:39)
[2021-03-25] MEDS: LEVOTHYROXINE SODIUM 100 MCG TABLET PO (05:39)
[2021-03-25] MEDS: ACETAMINOPHEN 500 MG TABLET 1000 MG PO (05:40)
[2021-03-25 06:27] LABS: Basophils Percent Auto 0.1 % (0.2-1.2); Eosinophils Percent Auto 0.1 % (0-4.4); Hematocrit 37.4 % (37.0-47.0); Immature Granulocyte Absolute 0.08 K/mm3 (0.00-0.031); Immature Granulocyte Percent A 0.5 % (0-0.5); Lymphocytes Percent Auto 5.3 % (18.3-44.2); Mean Corpuscular HGB Conc 32.1 g/dl (32-36); Mean Corpuscular Hemoglobin 30.4 pg (26-34); Mean Corpuscular Volume 94.7 fl (80-100); Mean Platelet Volume 11.3 fl (7.4-10.4); Monocytes Percent Auto 6.8 % (2.6-8.5); Neutrophils Absolute Auto 13.2 K/mm3 (1.3-6.7); Neutrophils Percent Auto 87.2 % (45.5-73.1); Platelet Count Result 271 k/mm3 (150-375); Red Blood Count 3.95 M/mm3 (4.2-5.4); Red Cell Distribution Width 15.4 % (11.5-14.5); White Blood Count 15.1 K/mm3 (4.5-10.0)
[2021-03-25 06:39] LABS: Anion Gap 7 mmol/L (8-16); Blood Urea Nitrogen 25 mg/dL (7-17); Calcium 8.7 mg/dL (8.4-10.2); Carbon Dioxide 27 mmol/L (22-30); Chloride 103 mmol/L (98-107); Estimated CRCL calculation 58 ml/min; Estimated Glomerular Filt Rate > 60; Glucose 98 mg/dL (65-110); Magnesium 2.2 mg/dL (1.6-2.3); Potassium 3.9 mmol/L (3.4-5.0); Sodium 137 mmol/L (137-145)
--- NOTE | 2021-03-25 09:34 | PC.NURSE ---
Verified with family that patient takes her xeralto in the evening time.
[2021-03-25] MEDS: AMIODARONE HCL 100 MG TABLET PO (09:49)
[2021-03-25] MEDS: PRAVASTATIN SODIUM 10 MG TABLET PO (09:50)
[2021-03-25] MEDS: FUROSEMIDE 20 MG TABLET BY MOUTH (09:50)
[2021-03-25] MEDS: POLYSACCHARIDE IRON COMPLEX 150 MG CAPSULE PO (09:50)
[2021-03-25] MEDS: SPIRONOLACTONE 25 MG TABLET PO (09:50)
--- NOTE | 2021-03-25 13:03 | PM.IMPN ---
Progress Note: A&P Assessment and Plan (1) History of appendectomy: Code(s): Z90.49 - Acquired absence of other specified parts of digestive tract Status: Acute Assessment and Plan: Postop day 2 and doing well -white blood cell count improving, suspect it will resolve on its own. No signs of systemic infection. -continue to advance diet per surgery -okay to discharge from medical standpoint (2) Chronic atrial fibrillation: Code(s): I48.20 - Chronic atrial fibrillation, unspecified Status: Acute Assessment and Plan: Patient appeared to be in sinus bradycardia at this time -not on any rate controlling medications -continue amiodarone (3) HTN (hypertension), benign: Code(s): I10 - Essential (primary) hypertension Status: Acute Assessment and Plan: Last blood pressure 154/84 -continue Lasix and spironolactone (4) COPD (chronic obstructive pulmonary disease): Qualifiers: COPD type: unspecified COPD Qualified Code(s): J44.9 - Chronic obstructive pulmonary disease, unspecified Code(s): J44.9 - Chronic obstructive pulmonary disease, unspecified Status: Acute Assessment and Plan: Chronic and controlled at this time (5) Aphasia following cerebral infarction: Code(s): I69.320 - Aphasia following cerebral infarction Status: Acute Assessment and Plan: Related to her stroke in the past. -plan to resume Xarelto this evening (6) Adult hypothyroidism: Code(s): E03.9 - Hypothyroidism, unspecified Status: Acute Assessment and Plan: Continue levothyroxine -TSH within normal limits (7) History of stroke with residual deficit: Code(s): I69.30 - Unspecified sequelae of cerebral infarction Status: Acute Assessment and Plan: As above (8) Mixed hyperlipidemia: Code(s): E78.2 - Mixed hyperlipidemia Status: Acute Assessment and Plan: Continue with pravastatin Subjective Date/time seen: 03/25/21 13:03 Interval history: Pt is a 76-year-old female here for appendicitis. Patient was seen today and does have expressive aphasia but was able to answer most questions and daughter was at bedside. Patient has no complaints today. She has not tried solid food yet but plans to do so at lunch. She has not had any nausea, vomiting, shortness of breath, chest pain or dizziness. She is feeling good and ready to go. Exam Narrative: General: Well developed well nourished patient in NAD HEENT: normocephalic Neck: supple Neuro: Alert and oriented. Expressive aphasia. Upper extremity and lower extremity strength 5/5 CV:RRR Resp: CTA Abd: Soft, non distended. No pain to palpation. Positive bowel sounds. Incision sites clean and dry Extremities: No swelling, erythema, or pain to palpation. Objective Data Vital Signs Vital Signs: Vital Signs - 24 hr 03/24/21 15:09 03/24/21 16:00 03/24/21 20:00 Temperature 97.3 F L Pulse Rate 52 L 58 L 48 L Respiratory Rate 24 H Blood Pressure 145/58 H Pulse Oximetry 94 03/24/21 20:29 03/24/21 22:04 03/25/21 00:00 Temperature 97.5 F L Pulse Rate 50 L 47 L Respiratory Rate 17 Blood Pressure 147/57 H Pulse Oximetry 94 92 03/25/21 04:00 03/25/21 04:53 Temperature 97 F L Pulse Rate 49 L 49 L Respiratory Rate 16 Blood Pressure 154/84 H Pulse Oximetry 93 Intake/Output Intake/Output: Intake & Output 03/22/21 03/23/21 03/24/21 03/25/21 23:59 23:59 23:59 23:59 Intake Total 2700 1070 560 Output Total 400 200 400 Balance 2300 870 160 Meds/Results Medications: Active Medications Generic Name Dose Route Start Last Admin Trade Name Freq PRN Reason Stop Dose Admin Acetaminophen 1,000 mg 03/23/21 15:39 03/25/21 05:40 Acetaminophen 500 Mg Tablet PO 1,000 mg Q6H PRN Administration Mild Pain (1-3) or Fever Amiodarone HCl 100 mg
--- NOTE | 2021-03-25 13:45 | PM.DS ---
DS: Admitting Diagnosis Discharge Date 03/25/2021 Admitting Diagnosis acute uncomplicated appendicitis DS: Discharge Diagnosis Discharge Diagnosis (1) Acute appendicitis: Onset Date: ~03/23/21 Code(s): K35.80 - Unspecified acute appendicitis Status: Acute Assessment and Plan: This was the main reason for her admission. (2) Anticoagulant long-term use: Onset Date: ~2017 Code(s): Z79.01 - senior care (current) use of anticoagulants Status: Acute Assessment and Plan: Xeralto becaause of her history of stroke and paroxysmal atrial tachycardia. (3) History of appendectomy: Onset Date: ~02/2021 Code(s): Z90.49 - Acquired absence of other specified parts of digestive tract Status: Acute (4) Adult hypothyroidism: Code(s): E03.9 - Hypothyroidism, unspecified Status: Acute Assessment and Plan: controllled on meds (5) History of stroke with residual deficit: Code(s): I69.30 - Unspecified sequelae of cerebral infarction Status: Acute Assessment and Plan: No change during this admission (6) Mixed hyperlipidemia: Code(s): E78.2 - Mixed hyperlipidemia Status: Acute Assessment and Plan: on meds (7) Tobacco abuse: Code(s): Z72.0 - Tobacco use Status: Acute Assessment and Plan: Apparntly has never stopped smoking, manuel after her stroke. (8) HTN (hypertension), benign: Code(s): I10 - Essential (primary) hypertension Status: Acute Assessment and Plan: on meds and controlled. (9) COPD (chronic obstructive pulmonary disease): Qualifiers: COPD type: unspecified COPD Qualified Code(s): J44.9 - Chronic obstructive pulmonary disease, unspecified Code(s): J44.9 - Chronic obstructive pulmonary disease, unspecified Status: Acute Assessment and Plan: secodry to smoking and on meds/inhaler (10) Morbid (severe) obesity due to excess calories: Code(s): E66.01 - Morbid (severe) obesity due to excess calories Status: Acute Assessment and Plan: encouraged to go on low fat diet and walk more once again able. (11) Personal history of nicotine dependence: Code(s): Z87.891 - Personal history of nicotine dependence Status: Acute Assessment and Plan: as above (12) PAF (paroxysmal atrial fibrillation): Code(s): I48.0 - Paroxysmal atrial fibrillation Status: Acute Assessment and Plan: No episodes of A-fib while on the monitor during this admission that I know of. Dr. Wiggins was avilable during the admission but did not see pt as there were no concerning arrthymias. Patient appeared to be in sinus bradycardia at this time -not on any rate controlling medications -continue amiodarone. (13) DARRYL (obstructive sleep apnea): Code(s): G47.33 - Obstructive sleep apnea (adult) (pediatric) Status: Acute Assessment and Plan: Pt used a CPAP at night during the admission. DS: Summary Hospital Course Reason for hospitalization: Acute uncomplicated appendicitis Hospital Course: Pt presented to the [place] ED with new onset aof abd. pain. W/U revealed an elevated WBC and CT showing suspected appendicitis. Fortunately pt di not take her Xeralto on the morning of admission so by that PM it had been about 36 hr since her last dose. She under went a successful laparoscopic appendectomy. There did not appear to be any sign of perforation so no further antibiotics were given. On POD #1 her WBC went up rather than down., but the pt had becone dizzy and nauseated just before the labs were drawn, so this may have represented WBC margination rather than any continuing infection. WE decided together with the hospitlaist kamilah to wathc her nother day and advance her diet slowly. By POD# 2 the WBC was down by half to 15,000. and pt was no longer nauseated, and moving around more like she does at home pe
--- NOTE | 2021-03-25 14:37 | PC.NURSE ---
Patient refused the influenza vaccine.
== END 2021-03-25 14:15 | disposition home or self-care (01) ==
LOC: ANHED 12:12 → ANHSURGERY 12:48 → ANH3MED 17:48 → ANHSURGERY 18:57 → ANH3MED 18:57
PROVIDERS: Nurse Practitioner; Physician Assistant; Admitting Provider Surgery; Emergency Provider Emergency Medicine; PCP Internal Medicine; Visit Provider Surgery
PROC: 0DTJ4ZZ Resection of Appendix, Percutaneous Endoscopic Approach (ICD-10-PCS; CPT 44970; principal; 2021-03-23 14:00)
DX: K35.30 Acute appendicitis with localized peritonitis, without perforation or gangrene (principal); R10.31 Right lower quadrant pain; I69.320 Aphasia following cerebral infarction; E03.9 Hypothyroidism, unspecified; E78.5 Hyperlipidemia, unspecified; E66.01 Morbid (severe) obesity due to excess calories; I11.0 Hypertensive heart disease with heart failure; I50.30 Unspecified diastolic (congestive) heart failure; J44.9 Chronic obstructive pulmonary disease, unspecified; F17.210 Nicotine dependence, cigarettes, uncomplicated; Z68.41 Body mass index [BMI] 40.0-44.9, adult; Z79.01 Long term (current) use of anticoagulants
CPT/HCPCS: 44970; 36415; 51701; 74177; 80048; 80053; 81001; 83605; 83615; 83690; 83735; 84443; 85025; 85027; 85610; 85730; 86850; 86900; 86901; 88304; 93005; 96361; 96365; 96367; 96375; 96376; 99285; A9270; G0378; J0131; J0330; J1100; J1630; J1650; J2270; J2405; J2543; J2704; J2710; J3010; J7030; J7120; Q9967

== ENCOUNTER 2021-04-30 07:26 | Outpatient (CLI) | payer OTHER, SELFPAY | END 2021-04-30 07:27 | disposition home or self-care (01) | LOC: ANHLAB 07:28 | PROVIDERS: PCP Internal Medicine; Visit Provider Nurse Practitioner | DX: E78.5 Hyperlipidemia, unspecified (principal) | CPT/HCPCS: 99199; 36415; 80053; 80061 ==

== ENCOUNTER 2021-05-01 07:34 | Outpatient (CLI) | payer OTHER, SELFPAY ==
[2021-05-01 08:00] LABS: Alanine Aminotransferase 24 U/L (4-35); Albumin Level 4.2 g/dL (3.5-5.1); Alkaline Phosphatase 43 U/L (38-126); Anion Gap 6 mmol/L (8-16); Aspartate Amino Transferase 27 U/L (14-36); Bilirubin,Total 0.7 mg/dL (0.2-1.3); Blood Urea Nitrogen 23 mg/dL (7-17); Calcium 9.6 mg/dL (8.4-10.2); Carbon Dioxide 26 mmol/L (22-30); Chloride 107 mmol/L (98-107); Cholesterol 209 mg/dL (0-200); Estimated Glomerular Filt Rate > 60; Glucose 109 mg/dL (65-110); HDL Direct 46 mg/dL; Potassium 4.6 mmol/L (3.4-5.0); Sodium 139 mmol/L (137-145); Triglycerides 152 mg/dL (<150)
[2021-05-01 08:11] LABS: LDL Cholesterol Direct 132 mg/dL
== END 2021-05-01 07:35 | disposition home or self-care (01) ==
PROVIDERS: PCP Internal Medicine; Visit Provider Nurse Practitioner
DX: E78.5 Hyperlipidemia, unspecified (principal)
CPT/HCPCS: 36415; 80053; 80061

== ENCOUNTER 2021-11-09 08:04 | Outpatient (CLI) | payer OTHER, SELFPAY ==
[2021-11-09 09:03] LABS: Alanine Aminotransferase 16 U/L (6-35); Albumin Level 4.2 g/dL (3.5-5.1); Alkaline Phosphatase 45 U/L (38-126); Anion Gap 7 mmol/L (8-16); Aspartate Amino Transferase 24 U/L (14-36); Bilirubin,Total 0.8 mg/dL (0.2-1.3); Blood Urea Nitrogen 20 mg/dL (7-17); Calcium 9.1 mg/dL (8.4-10.2); Carbon Dioxide 26 mmol/L (22-30); Chloride 105 mmol/L (98-107); Cholesterol 198 mg/dL (0-200); Estimated Glomerular Filt Rate > 60; Glucose 93 mg/dL (65-110); HDL Direct 40 mg/dL; Potassium 4.5 mmol/L (3.4-5.0); Sodium 138 mmol/L (137-145); Triglycerides 136 mg/dL (<150)
[2021-11-09 09:15] LABS: LDL Cholesterol Direct 114 mg/dL
[2021-11-09 09:49] LABS: Hemoglobin A1C 5.4 % (<5.7)
== END 2021-11-09 08:05 | disposition home or self-care (01) ==
PROVIDERS: PCP Internal Medicine; Visit Provider Internal Medicine
DX: E78.5 Hyperlipidemia, unspecified (principal); E03.9 Hypothyroidism, unspecified; E78.2 Mixed hyperlipidemia; R73.02 Impaired glucose tolerance (oral)
CPT/HCPCS: 36415; 80053; 80061; 83036; 84443

== ENCOUNTER 2021-12-03 00:36 | Day surgery (SDC) | payer OTHER, SELFPAY ==
--- NOTE | 2021-12-03 | ECG_ITS ---
Measurements Intervals [place] Rate: 57 P: 79 MA: 197 QRS: 79 QRSD: 88 T: 48 QT: 432 QTc: 424 Interpretive Statements SINUS BRADYCARDIA WITH OCCASIONAL SUPRAVENTRICULAR PREMATURE COMPLEXES NONSPECIFIC ST & T-WAVE ABNORMALITY COMPARED TO ECG 12/03/2021 08:12:19 SINUS BRADYCARDIA NOW PRESENT Electronically Signed On 12-03-2021 14:19:59 CDT by Bennie Maloney M.D.
--- NOTE | 2021-12-03 | ECHO_ITS ---
Patient Info Name: Florinda Cano Age: 76 years : 1945 Gender: Female Ht: 62 in Wt: 214 lbs BSA: 2.11 m2 HR: 95 bpm Exam Date: 12/03/2021 1:14 PM Exam Location: [facility] Pulmonary Patient Status: Outpatient Admit Date: 12/03/2021 Staff Ordering Physician: Michael Wiggins DO Contact Acid Plant Operator Helper: Alber Boyer RDCS, RT Attending Provider: Michael Wiggins DO Referring Physician: Feliciano العلي; Exam Type: CA echo transesophageal Study Info Indications I48.1 - Persistent atrial fibrillation Complete two-dimensional, color flow and Doppler transesophageal study is performed. Procedure Details Risks/benefits/alternative treatment discuss with patient and she is agreeable to procedure. She is monitored throughout the procedure by electrographically, BP, HR and pulse ox. BP 130/80 mmHg, HR 95 in atrial fib, pulse ox 95%. Patient is sedated as per anesthesia. AZAEL probe advanced to posterior oropharnynx and glided into esophagus without incident. Multiple images were obtained. AZAEL probe withdrawn and no blood noted on AZAEL probe tip. Patient tolerated procedure well and no complications. Summary 1. Left ventricular chamber dimension is normal. 2. Left ventricular systolic function is normal with an ejection fraction of 60-65%. 3. The left ventricular diastolic function is indeterminate as it was not assessed.. 4. Left atrial chamber dimension is moderately enlarged. 5. Right atrial chamber dimension is moderately enlarged. 6. There is mild aortic valve sclerosis. 7. There is mild to moderate mitral valve regurgitation. 8. There is trace tricuspid valve regurgitation. Left Ventricle Left ventricular systolic function is normal with an ejection fraction of 60-65%. The left ventricular diastolic function is indeterminate as it was not assessed.. Left ventricular chamber dimension is normal. Right Ventricle Right ventricular chamber dimension is normal. Right ventricular systolic function is normal. Left Atria Left atrial chamber dimension is moderately enlarged. Right Atria Right atrial chamber dimension is moderately enlarged. Atrial Appendage No thrombus in left atrium. There is no thrombus visualized in the left atrial appendage. Aortic Valve The aortic valve is trileaflet. There is mild aortic valve sclerosis. There is no aortic valve stenosis. There is no aortic valve regurgitation. Pulmonic Valve There is no pulmonic regurgitation. Mitral Valve There is no mitral valve stenosis. There is mild to moderate mitral valve regurgitation. Tricuspid Valve There is trace tricuspid valve regurgitation. RVSP is not assessed. Pericardium/Pleural There is no pericardial effusion. Inferior Vena Cava Inferior vena cava is not well visualized. Aorta The aortic root size at the sinus of Valsalva is normal. Report Signatures
[2021-12-03 11:24] VITALS: BP 142/85; PULSE 98; RESP 18; TEMP 36.1; O2SAT 97; BMI 39.2
--- NOTE | 2021-12-03 11:30 | ECG_ITS ---
Measurements Intervals [place] Rate: 92 P: UT: 0 QRS: 114 QRSD: 88 T: 22 QT: 354 QTc: 440 Interpretive Statements ATRIAL FIBRILLATION POSSIBLE RIGHT VENTRICULAR HYPERTROPHY [SOME/ALL OF: PROMINENT R IN V1, LATE TRANSITION, RAD, ROSIE, SSS] MINIMAL ST DEPRESSION [0.025+ mV ST DEPRESSION] COMPARED TO ECG 03/23/2021 12:18:21 ATRIAL FIBRILLATION NOW PRESENT Electronically Signed On 12-03-2021 14:18:48 CDT by Bennie Maloney M.D.
--- NOTE | 2021-12-03 12:44 | WPDANESEPP ---
Anes - Eval Pre Procedure Procedure: Operation Date: 12/03/21 12:30 Proposed Procedures p Trans Esophageal Echo - Michael Wiggins DO s Electrical Cardioversion - Michael Wiggins DO Date/Time: 12/03/21 12:44 Surgeon: Feliciano Pre Op Diagnosis: a-fib Patient Data Age: 76 Gender: F Height: 1.57 m Weight: 97.3 kg Last Vital Signs Temp 96.9 F L 12/03/21 11:24 Pulse 98 12/03/21 11:24 Resp 18 12/03/21 11:24 BP 142/85 H 12/03/21 11:24 Pulse Ox 97 12/03/21 11:24 O2 Del Method Room Air 12/03/21 11:24 Allergies Allergy/AdvReac Type Severity Reaction Status Date / Time No Known Allergies Allergy Verified 11/23/21 10:21 Home Medications Medication Instructions Recorded Confirmed Type polysaccharide iron complex 150 mg 150 mg PO DAILY 04/20/20 12/03/21 History iron capsule (Ferrex) rivaroxaban 15 mg tablet (Xarelto) 15 mg PO DAILY #90 tabs 06/14/21 12/03/21 Rx levothyroxine 175 mcg tablet 175 mcg PO DAILY #90 tabs 07/27/21 12/03/21 Rx (Synthroid) furosemide 20 mg tablet See Rx Instructions .Route 08/23/21 12/03/21 Rx .COMPLEX #90 tabs spironolactone 25 mg tablet 25 mg PO DAILY #90 tabs 09/16/21 12/03/21 Rx pravastatin 10 mg tablet See Rx Instructions .Route 10/04/21 12/03/21 Rx .COMPLEX #90 tabs amiodarone 200 mg tablet 200 mg PO DAILY #90 tabs 10/22/21 12/03/21 Rx temazepam 15 mg capsule 15 mg PO QHS PRN sleep #30 caps 11/15/21 12/03/21 Rx Patient hx anesthesia problems: none Family hx anesthesia problems: none Results Review: All pre-operative results and documents have been reviewed as part of the pre-operative evaluation. 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 Chronic diastolic (congestive) heart failure Constipation, unspecified Degenerative joint disease of knee JETT (dyspnea on exertion) Gastroesophageal reflux disease History of stroke with residual deficit History of tobacco abuse Insomnia due to medical condition Iron deficiency anemia IT band syndrome Left knee DJD Medial meniscus tear Mixed hyperlipidemia Obesity DARRYL (obstructive sleep apnea) PAF (paroxysmal atrial fibrillation) Postmenopausal Right knee DJD Right knee DJD SOB (shortness of breath) Stress fracture Thyroid disease Surgical History Surgical History History of appendectomy (~02/2021) 03/23/[address] Riggs No significant past surgical history Family History Family History Sibling Patient's brother is in good health Other Family history of colonic diverticulitis Hypertension Social History Social History Social History: Her , Kale, is her healthcare POA. The patient has 3 children. The patient is a former smoker. Smoking packs per day: 1.5 Smoking cigarettes per day: 30.0 Years smoked: 40 Smoking pack-years: 60.00 Smoking status: Former smoker Tobacco type: cigarettes (smokes 2 cigarettes daily) Second hand tobacco smoke exposure: No Smoking end date: 06/26/16 Alcohol intake: never Substance use: never Substance use type: does not use Additional living arrangements comments: Gender identity (if verbalized by the patient): Female Sexual Orientation (if Verbalized by the Patient): Straight or Heterosexual Spiritual care concerns: No Exam Day of Procedure 12/03/21 12:44 Patient weight: morbidly obese
--- NOTE | 2021-12-03 13:06 | WPDANESEPPF ---
Anes - Initial Pre Proc Eval Procedure: Operation Date: 12/03/21 12:30 Proposed Procedures p Trans Esophageal Echo - Michael Wiggins DO s Electrical Cardioversion - Michael Wiggins DO Date/Time: 12/03/21 13:06 Surgeon: Michael Wiggins DO Pre Op Diagnosis: a-fib Patient Data Age: 76 Gender: F Height: 1.57 m Weight: 97.3 kg Last Vital Signs Temp 96.9 F L 12/03/21 11:24 Pulse 98 12/03/21 11:24 Resp 18 12/03/21 11:24 BP 142/85 H 12/03/21 11:24 Pulse Ox 97 12/03/21 11:24 O2 Del Method Room Air 12/03/21 11:24 Allergies Allergy/AdvReac Type Severity Reaction Status Date / Time No Known Allergies Allergy Verified 11/23/21 10:21 Home Medications Medication Instructions Recorded Confirmed Type polysaccharide iron complex 150 mg 150 mg PO DAILY 04/20/20 12/03/21 History iron capsule (Ferrex) rivaroxaban 15 mg tablet (Xarelto) 15 mg PO DAILY #90 tabs 06/14/21 12/03/21 Rx levothyroxine 175 mcg tablet 175 mcg PO DAILY #90 tabs 07/27/21 12/03/21 Rx (Synthroid) furosemide 20 mg tablet See Rx Instructions .Route 08/23/21 12/03/21 Rx .COMPLEX #90 tabs spironolactone 25 mg tablet 25 mg PO DAILY #90 tabs 09/16/21 12/03/21 Rx pravastatin 10 mg tablet See Rx Instructions .Route 10/04/21 12/03/21 Rx .COMPLEX #90 tabs amiodarone 200 mg tablet 200 mg PO DAILY #90 tabs 10/22/21 12/03/21 Rx temazepam 15 mg capsule 15 mg PO QHS PRN sleep #30 caps 11/15/21 12/03/21 Rx Patient hx anesthesia problems: none Family hx anesthesia problems: none Results Review: All pre-operative results and documents have been reviewed as part of the pre-operative evaluation. 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 Chronic diastolic (congestive) heart failure Constipation, unspecified Degenerative joint disease of knee JETT (dyspnea on exertion) Gastroesophageal reflux disease History of stroke with residual deficit History of tobacco abuse Insomnia due to medical condition Iron deficiency anemia IT band syndrome Left knee DJD Medial meniscus tear Mixed hyperlipidemia Obesity DARRYL (obstructive sleep apnea) PAF (paroxysmal atrial fibrillation) Postmenopausal Right knee DJD Right knee DJD SOB (shortness of breath) Stress fracture Thyroid disease Surgical History Surgical History History of appendectomy (~02/2021) 03/23/[address] Riggs No significant past surgical history Family History Family History Sibling Patient's brother is in good health Other Family history of colonic diverticulitis Hypertension Social History Social History Social History: Her , Kale, is her healthcare POA. The patient has 3 children. The patient is a former smoker. Smoking packs per day: 1.5 Smoking cigarettes per day: 30.0 Years smoked: 40 Smoking pack-years: 60.00 Smoking status: Former smoker Tobacco type: cigarettes (smokes 2 cigarettes daily) Second hand tobacco smoke exposure: No Smoking end date: 06/26/16 Alcohol intake: never Substance use: never Substance use type: does not use Additional living arrangements comments: Gender identity (if verbalized by the patient): Female Sexual Orientation (if Verbalized by the Patient): Straight or Heterosexual Spiritual care concerns: No Anes - Eval Final PreProcedure Day of Procedure 12/03/21 13:06 Patient weight: morbidly obese Heart: regular rate and rhythm Lungs: clear to auscultation Airway: Mallampati scale class III Neurological: alert and oriented Last oral intake: >/= 8 hours ASA classification: IV Emergent: no Anesthetic plan: proceed Anesthesia type and monitoring: general GIVS and standard mo
[2021-12-03 13:22] VITALS: BP 121/56; PULSE 50; RESP 16; O2SAT 99
[2021-12-03 13:35] VITALS: BP 114/56; PULSE 51; RESP 20; O2SAT 97
[2021-12-03 13:47] VITALS: BP 127/64; PULSE 65; RESP 20; O2SAT 93
--- NOTE | 2021-12-03 14:00 | SUR.PHASEII ---
Pt's HR consistently low 50s & drops into 40s. Dr Wiggins aware and wants to continue to have pt take 200mg amiodarone daily.
[2021-12-03 14:12] VITALS: BP 128/74; PULSE 50; RESP 20; O2SAT 96
--- NOTE | 2021-12-03 14:12 | SUR.PHASEII ---
Discharge instructions given to pt and family. Pt and family states understanding. Family concerned about heart rate being low into 40-50s. Informed them that Dr Wiggins aware & wants her to continue Amiodarone at 200 daily. Informed family that if they become concerned about her HR, they can call Dr Hardin office. Also informed them they can keep an eye on it with a otc bp cuff and spo2 monitor. They responded that they do have an spo2 monitor. This RN informed them at any time that they are concerned call Dr Wiggins's office.
--- NOTE | 2021-12-03 14:16 | WPDCARDVER ---
Cardioversion Cardioversion Date of procedure: 12/03/21 Procedure: AZAEL/Cardioversion Pre-op diagnosis: atrial fibrillation Post-op diagnosis: Same Indications: Symptomatic atrial fibrillation Description of procedure: Patient had AZAEL just immediately prior to cardioversion which showed no thrombus in left atrium or left atrial appendage. Defibrillator pads placed in anterior and posterior chest. Patient already sedated with anesthesia. 200 J biphasic synchronized energy x 1 was successful at restoring sinus rhythm at 50's bpm from atrial fibrillation at 90's bpm. Patient tolerated procedure well. No immediate complications. Sedation: As per anesthesia. Conclusion: 1. Successful direct current cardioversion in restoring sinus rhythm from atrial fibrillation.
== END 2021-12-03 14:22 | disposition home or self-care (01) ==
PROVIDERS: PCP Internal Medicine; Visit Provider Internal Medicine Cardiovascular Disease
PROC: (CPT 93312; principal; 2021-12-03 12:30)
PROC: 5A2204Z Restoration of Cardiac Rhythm, Single (ICD-10-PCS; 2021-12-03 12:30)
DX: I48.0 Paroxysmal atrial fibrillation (principal); I50.30 Unspecified diastolic (congestive) heart failure; D50.9 Iron deficiency anemia, unspecified; R06.00 Dyspnea, unspecified; E78.5 Hyperlipidemia, unspecified; G47.33 Obstructive sleep apnea (adult) (pediatric); I63.89 Other cerebral infarction; R47.9 Unspecified speech disturbances; Z87.891 Personal history of nicotine dependence; I44.30 Unspecified atrioventricular block; Z79.01 Long term (current) use of anticoagulants; E03.9 Hypothyroidism, unspecified; E66.9 Obesity, unspecified; Z68.39 Body mass index [BMI] 39.0-39.9, adult; I34.0 Nonrheumatic mitral (valve) insufficiency; R00.1 Bradycardia, unspecified
CPT/HCPCS: 92960; 93312; 93320; 93325; J2001; J2704

== ENCOUNTER 2022-05-17 08:22 | Outpatient (CLI) | payer OTHER, SELFPAY ==
[2022-05-17 09:10] LABS: Alanine Aminotransferase 23 U/L (6-35); Albumin Level 4.4 g/dL (3.5-5.1); Alkaline Phosphatase 44 U/L (38-126); Anion Gap 11 mmol/L (8-16); Aspartate Amino Transferase 26 U/L (14-36); Blood Urea Nitrogen 18 mg/dL (7-17); Calcium 9.1 mg/dL (8.4-10.2); Carbon Dioxide 25 mmol/L (22-30); Chloride 105 mmol/L (98-107); Cholesterol 217 mg/dL (0-200); Estimated Glomerular Filt Rate > 60; Glucose 94 mg/dL (65-110); HDL Direct 43 mg/dL; Potassium 4.4 mmol/L (3.4-5.0); Sodium 141 mmol/L (137-145); Triglycerides 177 mg/dL (<150)
[2022-05-17 09:21] LABS: LDL Cholesterol Direct 122 mg/dL
[2022-05-17 11:17] LABS: Hemoglobin A1C 5.9 % (<5.7)
== END 2022-05-17 08:23 | disposition home or self-care (01) ==
PROVIDERS: PCP Internal Medicine; Visit Provider Internal Medicine
DX: E78.5 Hyperlipidemia, unspecified (principal); I10 Essential (primary) hypertension; R73.02 Impaired glucose tolerance (oral); E03.9 Hypothyroidism, unspecified
CPT/HCPCS: 36415; 80053; 80061; 83036; 84443

== ENCOUNTER 2022-12-20 07:02 | Outpatient (CLI) | payer OTHER, SELFPAY ==
[2022-12-20 07:37] LABS: Alanine Aminotransferase 27 U/L (6-35); Albumin Level 4.3 g/dL (3.5-5.1); Alkaline Phosphatase 49 U/L (38-126); Anion Gap 8 mmol/L (8-16); Aspartate Amino Transferase 30 U/L (14-36); Bilirubin,Total 0.9 mg/dL (0.2-1.3); Blood Urea Nitrogen 19 mg/dL (7-17); Calcium 9.4 mg/dL (8.4-10.2); Carbon Dioxide 26 mmol/L (22-30); Chloride 107 mmol/L (98-107); Cholesterol 159 mg/dL (0-200); Estimated Glomerular Filt Rate > 60; Glucose 99 mg/dL (65-110); HDL Direct 41 mg/dL; Potassium 4.7 mmol/L (3.4-5.0); Sodium 141 mmol/L (137-145); Triglycerides 136 mg/dL (<150)
[2022-12-20 07:40] LABS: Mean Corpuscular HGB Conc 31.3 g/dl (32-36); Mean Corpuscular Hemoglobin 31.7 pg (26-34); Mean Corpuscular Volume 101.5 fl (80-100); Mean Platelet Volume 10.7 fl (7.4-10.4); Platelet Count Result 292 k/mm3 (150-375); Red Blood Count 4.73 M/mm3 (4.2-5.4); Red Cell Distribution Width 12.9 % (11.5-14.5); White Blood Count 6.7 K/mm3 (4.5-10.0)
[2022-12-20 07:48] LABS: LDL Cholesterol Direct 90 mg/dL
[2022-12-20 07:49] LABS: Hemoglobin A1C 5.7 % (<5.7)
[2022-12-20 08:07] LABS: Thyroid Stimulating Hormone 0.091 uIU/mL (0.465-4.680)
[2022-12-20 08:26] LABS: Free T4 Free Thyroxine 1.97 ng/mL (0.78-2.19)
== END 2022-12-20 07:03 | disposition home or self-care (01) ==
PROVIDERS: Internal Medicine; PCP Family Medicine; Visit Provider Family Medicine
DX: Z00.00 Encounter for general adult medical examination without abnormal findings (principal); I11.0 Hypertensive heart disease with heart failure; I50.20 Unspecified systolic (congestive) heart failure; E03.9 Hypothyroidism, unspecified; E78.5 Hyperlipidemia, unspecified; E55.9 Vitamin D deficiency, unspecified
CPT/HCPCS: 36415; 80053; 80061; 83036; 84439; 84443; 85027

== ENCOUNTER 2023-06-29 07:04 | Outpatient (CLI) | payer OTHER, SELFPAY ==
[2023-06-29 08:04] LABS: Basophils Absolute Auto 0.1 K/mm3 (0.0-0.1); Basophils Percent Auto 0.7 % (0.2-1.2); Eosinophils Absolute Auto 0.3 K/mm3 (0-0.3); Eosinophils Percent Auto 3.9 % (0-4.4); Hematocrit 47.7 % (37.0-47.0); Hemoglobin 14.7 g/dL (12.0-15.0); Immature Granulocyte Absolute 0.02 K/mm3 (0.00-0.031); Immature Granulocyte Percent A 0.3 % (0-0.5); Lymphocytes Absolute Auto 1.37 K/mm3 (0.9-3.2); Lymphocytes Percent Auto 19.1 % (18.3-44.2); Mean Corpuscular HGB Conc 30.8 g/dl (32-36); Mean Corpuscular Hemoglobin 31.3 pg (26-34); Mean Corpuscular Volume 101.7 fl (80-100); Mean Platelet Volume 10.7 fl (7.4-10.4); Monocytes Absolute Auto 0.7 K/mm3 (0.1-0.6); Monocytes Percent Auto 9.9 % (2.6-8.5); Neutrophils Absolute Auto 4.7 K/mm3 (1.3-6.7); Neutrophils Percent Auto 66.1 % (45.5-73.1); Platelet Count Result 281 k/mm3 (150-375); Red Blood Count 4.69 M/mm3 (4.2-5.4); Red Cell Distribution Width 14.3 % (11.5-14.5); White Blood Count 7.2 K/mm3 (4.5-10.0)
[2023-06-29 08:28] LABS: Alanine Aminotransferase 25 U/L (6-35); Albumin Level 3.9 g/dL (3.5-5.1); Alkaline Phosphatase 54 U/L (38-126); Anion Gap 7 mmol/L (8-16); Aspartate Amino Transferase 30 U/L (14-36); Bilirubin,Total 1.3 mg/dL (0.2-1.3); Blood Urea Nitrogen 16 mg/dL (7-17); Calcium 8.9 mg/dL (8.4-10.2); Carbon Dioxide 27 mmol/L (22-30); Chloride 106 mmol/L (98-107); Cholesterol 174 mg/dL (0-200); Estimated Glomerular Filt Rate > 60; Glucose 97 mg/dL (65-110); HDL Direct 37 mg/dL; Potassium 4.6 mmol/L (3.4-5.0); Sodium 140 mmol/L (137-145); Triglycerides 119 mg/dL (<150)
[2023-06-29 08:39] LABS: LDL Cholesterol Direct 102 mg/dL
[2023-06-29 08:54] LABS: Thyroid Stimulating Hormone < 0.015 uIU/mL (0.465-4.680)
[2023-06-29 10:11] LABS: Hemoglobin A1C 5.9 % (<5.7)
[2023-07-02 23:33] LABS: Vitamin D 1,25 (OH)2 Total 28 pg/mL (18-72); Vitamin D2 1,25 (OH)2 <8 pg/mL; Vitamin D3 1,25 (OH)2 28 pg/mL
== END 2023-06-29 07:05 | disposition home or self-care (01) ==
PROVIDERS: PCP Nurse Practitioner Family; Referring Provider Internal Medicine; Visit Provider Nurse Practitioner Family
DX: E78.5 Hyperlipidemia, unspecified (principal); E03.9 Hypothyroidism, unspecified; I10 Essential (primary) hypertension; E55.9 Vitamin D deficiency, unspecified; R73.02 Impaired glucose tolerance (oral); R53.83 Other fatigue; G89.29 Other chronic pain; I48.20 Chronic atrial fibrillation, unspecified; J44.9 Chronic obstructive pulmonary disease, unspecified; Z79.01 Long term (current) use of anticoagulants
CPT/HCPCS: 36415; 80053; 80061; 82652; 83036; 84439; 84443; 85025

== ENCOUNTER 2023-08-29 08:05 | Outpatient (CLI) | payer OTHER, SELFPAY ==
[2023-08-29 09:09] LABS: Thyroid Stimulating Hormone 0.026 uIU/mL (0.465-4.680)
[2023-08-29 09:38] LABS: Free T4 Free Thyroxine 1.59 ng/mL (0.78-2.19)
== END 2023-08-29 08:06 | disposition home or self-care (01) ==
LOC: ANHLAB 08:07
PROVIDERS: PCP Nurse Practitioner Family; Visit Provider Nurse Practitioner Family
DX: E78.5 Hyperlipidemia, unspecified (principal); E03.9 Hypothyroidism, unspecified
CPT/HCPCS: 36415; 84439; 84443

== ENCOUNTER 2023-10-23 07:16 | Outpatient (CLI) | payer OTHER, SELFPAY ==
[2023-10-23 08:45] LABS: Alanine Aminotransferase 27 U/L (6-35); Albumin Level 4.2 g/dL (3.5-5.1); Alkaline Phosphatase 55 U/L (38-126); Anion Gap 4 mmol/L (4-12); Aspartate Amino Transferase 29 U/L (14-36); Bilirubin,Total 1.1 mg/dL (0.2-1.3); Blood Urea Nitrogen 16 mg/dL (7-17); Calcium 9.3 mg/dL (8.4-10.2); Carbon Dioxide 30 mmol/L (22-30); Chloride 107 mmol/L (98-107); Estimated Glomerular Filt Rate > 60; Glucose 98 mg/dL (65-110); Hemoglobin A1C 5.7 % (<5.7); Potassium 4.6 mmol/L (3.4-5.0); Sodium 141 mmol/L (137-145)
[2023-10-23 09:11] LABS: Free T4 Free Thyroxine 1.59 ng/mL (0.78-2.19)
[2023-10-23 09:13] LABS: Thyroid Stimulating Hormone 0.516 uIU/mL (0.465-4.680)
== END 2023-10-23 07:17 | disposition home or self-care (01) ==
LOC: ANHLAB 07:17
PROVIDERS: PCP Nurse Practitioner Family; Visit Provider Nurse Practitioner Family
DX: R73.02 Impaired glucose tolerance (oral) (principal); E03.9 Hypothyroidism, unspecified; E66.01 Morbid (severe) obesity due to excess calories; E78.5 Hyperlipidemia, unspecified; I10 Essential (primary) hypertension; I48.20 Chronic atrial fibrillation, unspecified; I69.30 Unspecified sequelae of cerebral infarction; J44.9 Chronic obstructive pulmonary disease, unspecified; Z79.01 Long term (current) use of anticoagulants
CPT/HCPCS: 36415; 80053; 83036; 84439; 84443

== ENCOUNTER 2024-01-01 08:06 | Outpatient (CLI) | payer OTHER, SELFPAY ==
[2024-01-01 09:48] LABS: Free T4 Free Thyroxine 1.16 ng/mL (0.78-2.19)
== END 2024-01-01 08:07 | disposition home or self-care (01) ==
PROVIDERS: PCP Nurse Practitioner Family; Visit Provider Nurse Practitioner Family
DX: E78.5 Hyperlipidemia, unspecified (principal); E03.9 Hypothyroidism, unspecified; I48.20 Chronic atrial fibrillation, unspecified; J44.9 Chronic obstructive pulmonary disease, unspecified; I69.30 Unspecified sequelae of cerebral infarction; I10 Essential (primary) hypertension; E66.01 Morbid (severe) obesity due to excess calories; Z79.01 Long term (current) use of anticoagulants
CPT/HCPCS: 36415; 84439; 84443; 84481

== ENCOUNTER 2024-07-04 08:49 | Outpatient (CLI) | payer OTHER, SELFPAY ==
[2024-07-04 09:32] LABS: Basophils Absolute Auto 0.1 K/mm3 (0.0-0.1); Basophils Percent Auto 0.8 % (0.2-1.2); Eosinophils Absolute Auto 0.2 K/mm3 (0-0.3); Hematocrit 50.2 % (37.0-47.0); Hemoglobin 15.8 g/dL (12.0-15.0); Immature Granulocyte Absolute 0.03 K/mm3 (0.00-0.031); Immature Granulocyte Percent A 0.4 % (0-0.5); Lymphocytes Absolute Auto 1.61 K/mm3 (0.9-3.2); Lymphocytes Percent Auto 22.2 % (18.3-44.2); Mean Corpuscular HGB Conc 31.5 g/dl (32-36); Mean Corpuscular Volume 101.8 fl (80-100); Mean Platelet Volume 10.3 fl (7.4-10.4); Monocytes Absolute Auto 0.7 K/mm3 (0.1-0.6); Monocytes Percent Auto 9.4 % (2.6-8.5); Neutrophils Absolute Auto 4.6 K/mm3 (1.3-6.7); Neutrophils Percent Auto 64.2 % (45.5-73.1); Platelet Count Result 286 k/mm3 (150-375); Red Blood Count 4.93 M/mm3 (4.2-5.4); Red Cell Distribution Width 13.1 % (11.5-14.5); White Blood Count 7.2 K/mm3 (4.5-10.0)
[2024-07-04 09:46] LABS: Alanine Aminotransferase 22 U/L (6-35); Alkaline Phosphatase 48 U/L (38-126); Anion Gap 7 mmol/L (4-12); Aspartate Amino Transferase 27 U/L (14-36); Bilirubin,Total 1.1 mg/dL (0.2-1.3); Blood Urea Nitrogen 13 mg/dL (7-17); Calcium 8.8 mg/dL (8.4-10.2); Carbon Dioxide 28 mmol/L (22-30); Chloride 105 mmol/L (98-107); Cholesterol 191 mg/dL (0-200); Estimated Glomerular Filt Rate > 60; Glucose 101 mg/dL (65-110); HDL Direct 40 mg/dL; Potassium 4.4 mmol/L (3.4-5.0); Sodium 140 mmol/L (137-145); Triglycerides 164 mg/dL (<150)
[2024-07-04 09:57] LABS: LDL Cholesterol Direct 108 mg/dL
[2024-07-04 10:02] LABS: Hemoglobin A1C 5.9 % (<5.7)
[2024-07-04 10:07] LABS: Free T4 Free Thyroxine 0.97 ng/dL (0.78-2.19)
== END 2024-07-04 08:50 | disposition home or self-care (01) ==
PROVIDERS: PCP Nurse Practitioner Family; Visit Provider Nurse Practitioner Family
DX: E78.5 Hyperlipidemia, unspecified (principal); E03.9 Hypothyroidism, unspecified; I48.20 Chronic atrial fibrillation, unspecified; J44.9 Chronic obstructive pulmonary disease, unspecified; I69.30 Unspecified sequelae of cerebral infarction; I10 Essential (primary) hypertension; R73.02 Impaired glucose tolerance (oral); G47.00 Insomnia, unspecified; E66.01 Morbid (severe) obesity due to excess calories; Z53.20 Procedure and treatment not carried out because of patient's decision for unspecified reasons; Z79.01 Long term (current) use of anticoagulants
CPT/HCPCS: 36415; 80053; 80061; 83036; 84439; 84443; 85025

== ENCOUNTER 2024-12-24 14:41 | Emergency (ER) | payer OTHER, SELFPAY ==
--- NOTE | ~2024-12-24 | US_ITS ---
RIGHT LOWER EXTREMITY VENOUS ULTRASOUND Ordering provider: Tejal Turner PA-C History: . swelling RLE, hematoma . Comparison: None. FINDINGS: --COMMON FEMORAL: Patent and free of thrombus. Normal compressibility, phasic flow and augmentation. --PROXIMAL SUPERFICIAL FEMORAL: Patent and free of thrombus. Normal compressibility, phasic flow and augmentation. --DISTAL SUPERFICIAL FEMORAL: Patent and free of thrombus. Normal compressibility, phasic flow and au gmentation. --POPLITEAL: Patent and free of thrombus. Normal compressibility, phasic flow and augmentation. --POSTERIOR TIBIAL: Patent and free of thrombus. Normal compressibility, phasic flow and augmentation . Mixed echogenicity soft tissue swelling is seen in the right anterior chin which measures 1.6 x 1.3 x 1.2 cm most likely a hematoma. Follow-up advised. IMPRESSION: Negative right lower extremity venous US. No deep vein thrombosis. Highly suggestive of hematoma in the area anterior to the right chin. Follow-up and clinical correlat ion advised. Reviewed, dictated and finalized at location A. IMPRESSION: Negative right lower extremity venous US. No deep vein thrombosis. Highly suggestive of hematoma in the area anterior to the right chin. Follow-up and clinical correlation advised.
--- OUTSIDE RECORDS SUMMARY | 2024-12-24 14:44 | XMS_ITS | Clinical Summary ---
Author Organization [facility] Address [address] [place] [address] Care Team Providers Care Liquefaction Plant Operator Name Role Phone Unavailable Primary Care Provider Unavailabl e Social History Tobacco Use Types Packs/Day Years Used Date Smoking Tobacco: Never Assessed Comments Unknown Sex and Gender Information Value Date Recorded Sex Assigned at Not on file Legal Sex Female 7:32 AM CDT Gender Identity Not on file Sexual Orientation Not on file Plan of Treatment Health Maintenance Due Date Last Done Comments Hepatitis C 1963 DTaP, Tdap and Td Vaccines ( 1 - Tdap) 1966 Pneumococcal Vaccine: 50+ Ye ars (1 of 1 - PCV) 1997 Zoster Vaccines (1 of 2) 1997 Dexa Scan (General) 02/04/2012 RSV Immunization or 60+ Years (1 - 1-dose 75+ series) 2022 COVID-19 Vaccine (2023-2 5 season) 2024 Meningococcal B Vaccine Aged Out No l onger eligible based on patient's age to complete this topic Meningococcal Vaccine Aged Out No susie santos eligible based on patient's age to complete this topic RSV Immunizations Under 20 Months Aged Out No longer eligible based on patient's age to complete this topic
--- OUTSIDE RECORDS SUMMARY | 2024-12-24 14:44 | XMS_ITS | Clinical Summary ---
Author Organization [facility] Address [address] [place] [address] Care Team Providers Care Lace Sewer Name Role Phone DylanJosesito DO Primary Care Provider [phone] Source Comments [facility],non-owned Affiliates and Associated Physician Practices is amultiple site organization consisting of ambulatory clinics and hospital sitesin [place], [place], [place] and [place]. This disclosure is being madepursuant to the Care Everywhere program and may not contain all information available regarding this patient. Last updated 18.[facility] Allergies No known active allergies Medications * Be aware that medications may not be up to date on this document. Alwaysverify current medications with the patient. levothyroxine (SYNTHROID) 100 MCG tablet Take 100 mcg by mouth daily before breakfast Active furosemide (LASIX) 20 MG tablet Take 20 mg by mouth once daily Active aspirin (ASPIRIN) 81 MG chew tablet Take 1 tablet by mouth once daily 8 Active Active Problems Problem Noted Date Diagnosed Date Cerebrovascular accident (CVA) 01/27/2018 Persistent atrial fibrillation Acute diastolic heart failure LVH (left ventricular hypert rophy) due to hypertensive disease, with heart failure On amiodarone therapy Social History Tobacco Use Types Packs/Day Years Used Date Smoking Tobacco: Every Day Cigarettes Smokeless Tobacco: Never Tobacco Cessation:Ready to Q uit: Yes; Counseling Given: Yes Alcohol Use Standard Drinks/Week Comments No 0 (1 standard drink = 0.6 oz pur e alcohol) Comments No Sex and Gender Information Value Date Recorded Sex Assigned at Not on file Legal Sex Female 4:15 PM CDT Gender Identity Not on file Sexual Orientation Not on file Last Filed Vital Signs Vital Sign Reading Time Taken Comments Blood Pressure 130/57 02/11/2018 12:08 PM CDT Pulse 52 02/11/2018 12:08 PM CDT Temperature 36.8 C (98.2 F) 02/11/2018 12:08 PM CDT Respiratory Rate 16 02/11/2018 12:08 PM CDT Oxygen Saturation 96% 02/11/2018 12:08 PM CDT Inhaled Oxygen Concentration 21% 02/07/2018 1 2:07 AM CDT Weight 108 kg (238 lb) 02/08/2018 5:00 AM CDT Height 160 cm (5' 3) 01/27/2018 6:15 PM CDT Body Mass Index 42.16 01/27/2018 6:15 PM CDT Plan of Treatment Health Maintenance Due Date Last Done Comments BONE DENSITY TESTING 1945 HEPATITIS C SCREENING 01/29/1963 DTAP/TDAP/TD VACCINES (1 - Tdap) 1966 PNEUMOCOCCAL VACCINE 50+ (1 of 2 - PCV) 1966 ZOSTER VACCINE (1 of 2) 1997 Respiratory Syncytial Virus (RSV) Vaccine Pt: or over 60 yrs (1 - 1-dose 75+ series) 2022 COVID-19 VACCINE (1 - 2023-2 5 season) 2024 DEPRESSION SCREENING 06/26/2024 INFLUENZA VACCINE (Season Ended) 2025 HEPATITIS B VACCINE Aged Out No longe r eligible based on patient's age to complete this topic HIB VACCINE Aged Out No longer eligi ble based on patient's age to complete this topic HPV VACCINE Aged Out No longer eligi ble based on patient's age to complete this topic MENINGOCOCCAL (Group B) VACC INE SHARED DECISION-MAKING Aged Out No longer eligibl e based on patient's age to complete this topic MENINGOCOCCAL GROUPS A/C/Y/W VACCINE Aged Out No longer eligible b ased on patient's age to complete this topic Insurance MEDICARE [employer] Advance Directives * Full Code (Latest Code Status on File) Date Activated Date Inactivated Comments 01/27/2018 6:33 PM 02/11/2018 4:17 PM Care Teams Lace Sewer Relationship Specialty Start Date End Date Josesito Richardson DO PCP - General Internal Medicine 01/27/18
[2024-12-24 15:03] VITALS: BP 150/80; PULSE 89; RESP 16; TEMP 36.8; O2SAT 98
--- OUTSIDE RECORDS SUMMARY | 2024-12-24 16:50 | XMS_ITS | Clinical Summary ---
Author Organization [facility] Address [address] [place] [address] Care Team Providers Care Immigration Associate Name Role Phone DylanJosesito DO Primary Care Provider [phone] [facility],non-owned Affiliates and Associated Physician Practices is amultiple site organization consisting of ambulatory clinics and hospital sitesin [place], [place], [place] and [place]. This disclosure is being madepursuant to the Care Everywhere program and may not contain all information available regarding this patient. Last updated 18.[facility] Allergies No known active allergies Medications * [...] 6:33 PM 02/11/2018 4:17 PM Care Teams Immigration Associate Relationship Specialty Start Date End Date Josesito Richardson DO PCP - General Internal Medicine 01/27/18
--- OUTSIDE RECORDS SUMMARY | 2024-12-24 16:50 | XMS_ITS | Clinical Summary ---
Author Organization [facility] Address [address] [place] [id number] Care Team Providers Care Counter Maker Name Role Phone Unavailable Primary Care Provider [...]
--- NOTE | 2024-12-24 16:53 | ED.EXTPRO ---
HPI - Extremity Problem General Chief complaint: Extremity Problem,Nontraumatic Stated complaint: swelling RLE Time Seen by Provider: 12/24/24 15:09 Source: patient Mode of arrival: ambulatory Limitations: no limitations History of Present Illness HPI Narrative: Patient is a 79-year-old female who presents the ED with report of right lower extremity swelling/redness pain. Patient reports she dropped a full metal water bottle on her right trammell yesterday. Sustained a hematoma. States today it has increased in size and redness. Is able to ambulate. Patient is on Xarelto d/t hx AFIB. Denies any other injury. Denies numbness. Related Data Home Medications ?Medication ?Instructions ?Recorded ?Confirmed ?Last Taken ?Type polysaccharide iron complex 150 mg 150 mg PO DAILY 04/20/20 09/12/24 12/02/21 08:00 History iron capsule (Ferrex) cholecalciferol (vitamin D3) 25 25 mcg PO DAILY 12/22/22 09/12/24 Unknown History mcg (1,000 unit) capsule loratadine 10 mg disintegrating 10 mg PO DAILY PRN 12/22/22 09/12/24 Unknown History tablet magnesium 250 mg tablet 250 mg PO DAILY 12/22/22 09/12/24 Unknown History fluticasone propionate 50 2 spray intranasal BID PRN 07/05/23 09/12/24 Unknown History mcg/actuation nasal spray,suspension (Flonase Allergy Relief) Allergies Allergy/AdvReac Type Severity Reaction Status Date / Time No Known Allergies Allergy Verified 12/24/24 15:06 Review of Systems Review of Systems: All systems reviewed & are unremarkable except as noted in HPI. 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 Chronic diastolic (congestive) heart failure Constipation, unspecified JETT (dyspnea on exertion) Gastroesophageal reflux disease History of stroke with residual deficit History of tobacco abuse Insomnia due to medical condition Iron deficiency anemia Mixed hyperlipidemia Postmenopausal SOB (shortness of breath) Degenerative joint disease of knee Medial meniscus tear Stress fracture COPD (chronic obstructive pulmonary disease) Thyroid disease Obesity PAF (paroxysmal atrial fibrillation) DARRYL (obstructive sleep apnea) Surgical History Surgical History History of appendectomy (~02/2021) 03/23/[address] Riggs No significant past surgical history Family History Family History Sibling Patient's brother is in good health Other Family history of colonic diverticulitis Hypertension Social History Social History Social History: Her , Kale, is her healthcare POA. The patient has 3 children. The patient is a former smoker. Smoking packs per day: 1.5 Smoking cigarettes per day: 30.0 Years smoked: 40 Smoking pack-years: 60.00 Smoking status: Former smoker Tobacco type: cigarettes (smokes 2 cigarettes daily) Second hand tobacco smoke exposure: No Smoking end date: 06/26/16 Alcohol intake: never Substance use: never Substance use type: does not use Lack of Transportation: No Lack of Food: Never True Current Housing: I Have Housing Concerned About Future Housing: No Difficulty Paying Gas/Electric Bills: No Difficulty Paying for Meds: No Currently Unemployed: YES Education: High School Diploma/GED Difficulty w/ Childcare or Family Care: No Living arrangements: with family Additional living arrangements comments: Occupation/Education: retired Gender identity (if verbalized by the patient): Female Sexual Orientation (if Verbalized by the Patient): Straight or Heterosexual Spiritual care concerns: No Exam Narrative: GENERAL: Well appearing, well-nourished, non-toxic, in no acute distress. HEAD: Normocephalic, atraumatic. RESPIRATORY: Airway patent, respirations nonlabored. CARDIOVASCULAR: Regular rate and rhythm. Pedal pulses intact and easily palpable MUSCULOSKELETAL: No gross deformities. Hematoma formation to R anterior trammell with bruising present. Mild surrounding erythema and slight warmth. Focal TTP. SKIN: Warm, dry, normal color. NEURO: A&O X3. Speech intermittently aphasic, consistent with previous CVA. Cranial nerves II-XII grossly intact. Steady gait. No ataxic movements. PSYCHIATRIC: Appropriate mood and affect. Normal interaction. Course Vital Signs Vital signs: Vital Signs Temperature 98.2 F 12/24/24 15:03 Pulse Rate 89 12/24/24 15:03 Respiratory Rate 16 12/24/24 15:03 Blood Pressure 150/80 H 12/24/24 15:03 Pulse Oximetry 98 12/24/24 15:03 Temperature 98.2 F 12/24/24 15:03 Pulse Rate 89 12/24/24 15:03 Respiratory Rate 16 12/24/24 15:03 Blood Pressure 150/80 H 12/24/24 15:03 Pulse Oximetry 98 12/24/24 15:03 MDM - Extremity (Nontraumatic) MDM Narrative Medical decision making narrative: Your supple ultrasound negative for DVT. Highly suggestive of hematoma to right trammell. Consistent with clinical picture. Given new redness and warmth, will cover for potential superimposed cellulitis with Keflex. Given Parth bandage for compression and support. Discussed management of hematoma and return precautions. Discharged in stable condition. Medical Records Attestation: I reviewed the patient's medical records. Imaging Data Attestation: I personally reviewed and interpreted this imaging study as follows: Radiologist's impression: ITS Impressions Venous Doppler Study 12/24/24 16:17 IMPRESSION: Negative right lower extremity venous US. No deep vein thrombosis. Highly suggestive of hematoma in the area anterior to the right chin. Follow-up and clinical correlation advised. Discharge Plan Discharge Clinical Impression: Hematoma of right lower extremity Qualifiers: Encounter type: initial encounter Qualified Code(s): S80.11XA - Contusion of right lower leg, initial encounter Cellulitis Qualifiers: Site of cellulitis: extremity Site of cellulitis of extremity: lower extremity Laterality: right Qualified Code(s): L03.115 - Cellulitis of right lower limb Patient Disposition: Home Condition: Stable Instructions: Antibiotic Form, Cellulitis (ED), Hematoma (ED), Bone Bruise (ED) Additional Instructions: Take antibiotics as prescribed for possible developing cellulitis surrounding hematoma. Hematoma will likely take several weeks to fully resolve. Use PARTH bandage for compression and support. Recommend Tylenol as needed for pain. Return to ED for new or worsening concerns. Patient Language: Chadian Prescriptions: New cephalexin 500 mg capsule 500 mg PO Q6H 5 Days Qty: 20 0RF No Action fluticasone propionate [Flonase Allergy Relief] 50 mcg/actuation spray,suspension 2 spray intranasal BID PRN Rx Instructions: administer into each nostril polysaccharide iron complex [Ferrex 150] 150 mg iron capsule 150 mg PO DAILY Patient Comments: per patient home medication list provided 04/17/20 Rx Instructions: avoid dairy/calcium-containing products and/or antacids for at least 2 hrs before and after dose loratadine 10 mg tablet,disintegrating 10 mg PO DAILY PRN magnesium 250 mg tablet 250 mg PO DAILY cholecalciferol (vitamin D3) 25 mcg (1,000 unit) capsule 25 mcg PO DAILY metoprolol succinate 25 mg tablet extended release 24 hr See Rx Instructions .ROUTE .COMPLEX Qty: 90 2RF Dose Instruction: TAKE 1 TABLET BY MOUTH EVERY DAY Rx Instructions: TAKE 1 TABLET BY MOUTH EVERY DAY spironolactone 25 mg tablet See Rx Instructions .ROUTE .COMPLEX Qty: 90 1RF Dose Instruction: TAKE 1 TABLET BY MOUTH ONCE DAILY Rx Instructions: TAKE 1 TABLET BY MOUTH ONCE DAILY levothyroxine 125 mcg tablet 125 mcg PO DAILY Qty: 90 1RF pravastatin 40 mg tablet See Rx Instructions .ROUTE .COMPLEX Qty: 90 1RF Dose Instruction: TAKE 1 TABLET BY MOUTH EVERY DAY Rx Instructions: TAKE 1 TABLET BY MOUTH EVERY DAY furosemide 20 mg tablet See Rx Instructions .ROUTE .COMPLEX Qty: 90 1RF Dose Instruction: TAKE ONE TABLET BY MOUTH EVERY MORNING Rx Instructions: TAKE ONE TABLET BY MOUTH EVERY MORNING Xarelto 15 mg tablet See Rx Instructions .ROUTE .COMPLEX Qty: 90 1RF Dose Instruction: TAKE 1 TABLET BY MOUTH EVERY DAY Rx Instructions: TAKE 1 TABLET BY MOUTH EVERY DAY Follow-up/Referrals: Nellie Mckinley APRN [Primary Care Provider] - Time of Disposition: 17:16
== END 2024-12-24 17:23 | disposition home or self-care (01) ==
PROVIDERS: Emergency Provider Physician Assistant; PCP Nurse Practitioner Family
DX: S80.11XA Contusion of right lower leg, initial encounter (principal); I50.32 Chronic diastolic (congestive) heart failure; I48.0 Paroxysmal atrial fibrillation; I69.920 Aphasia following unspecified cerebrovascular disease; E78.2 Mixed hyperlipidemia; J44.9 Chronic obstructive pulmonary disease, unspecified; K21.9 Gastro-esophageal reflux disease without esophagitis; G47.33 Obstructive sleep apnea (adult) (pediatric); M17.11 Unilateral primary osteoarthritis, right knee; Z87.891 Personal history of nicotine dependence; Z79.01 Long term (current) use of anticoagulants; Z79.899 Other long term (current) drug therapy; W20.8XXA Other cause of strike by thrown, projected or falling object, initial encounter
CPT/HCPCS: 93971; 99284

== ENCOUNTER 2025-02-04 07:02 | Outpatient (CLI) | payer OTHER, SELFPAY ==
--- OUTSIDE RECORDS SUMMARY | 2025-02-04 07:05 | XMS_ITS | Clinical Summary ---
Author Organization [facility] Address [address] [place] [id number] Care Team Providers Care Hotel Administrative Assistant Name Role Phone Unavailable Primary Care Provider [...]
--- OUTSIDE RECORDS SUMMARY | 2025-02-04 07:05 | XMS_ITS | Clinical Summary ---
Author Organization [facility] Address [address] [place] [address] Care Team Providers Care Asset Card Clerk Name Role Phone Josesito Richardson DO Primary Care Provider [phone] Source Comments [facility],non-owned Affiliates and Associated Physician Practices is amultiple site organization consisting of ambulatory clinics and hospital sitesin [place], [place], [place] and [place]. This disclosure is being madepursuant to the Care Everywhere program and may not contain all information available regarding this patient. Last updated 18.[facility] Allergies No known active allergies Medications * [...] season) 2024 DEPRESSION SCREENING 06/26/2024 INFLUENZA VACCINE (#1) 2025 HEPATITIS B VACCINE Aged Out No [...] 6:33 PM 02/11/2018 4:17 PM Care Teams Asset Card Clerk Relationship Specialty Start Date End Date Josesito Richardson DO PCP - General Internal Medicine 01/27/18
[2025-02-04 08:19] LABS: Hemoglobin A1C 5.7 % (<5.7)
[2025-02-04 08:22] LABS: Alanine Aminotransferase 30 U/L (6-35); Albumin Level 3.8 g/dL (3.5-5.1); Alkaline Phosphatase 43 U/L (38-126); Anion Gap 6 mmol/L (4-12); Aspartate Amino Transferase 36 U/L (14-36); Bilirubin,Total 0.6 mg/dL (0.2-1.3); Blood Urea Nitrogen 17 mg/dL (7-17); Calcium 8.9 mg/dL (8.4-10.2); Carbon Dioxide 26 mmol/L (22-30); Chloride 106 mmol/L (98-107); Cholesterol 184 mg/dL (0-200); Estimated Glomerular Filt Rate > 60; Glucose 87 mg/dL (65-110); HDL Direct 44 mg/dL; Potassium 4.0 mmol/L (3.4-5.0); Sodium 138 mmol/L (137-145); Total Protein 6.8 g/dL (6.3-8.2); Triglycerides 163 mg/dL (<150)
[2025-02-04 08:31] LABS: Free T4 Free Thyroxine 0.96 ng/dL (0.78-2.19)
[2025-02-04 08:54] LABS: Thyroid Stimulating Hormone 5.750 uIU/mL (0.465-4.680)
== END 2025-02-04 07:03 | disposition home or self-care (01) ==
LOC: ANHLAB 07:03
PROVIDERS: PCP Nurse Practitioner Family; Visit Provider Nurse Practitioner Family
DX: E03.9 Hypothyroidism, unspecified (principal); I10 Essential (primary) hypertension; E78.5 Hyperlipidemia, unspecified; I48.20 Chronic atrial fibrillation, unspecified; R73.02 Impaired glucose tolerance (oral); E66.01 Morbid (severe) obesity due to excess calories; I69.30 Unspecified sequelae of cerebral infarction; J44.9 Chronic obstructive pulmonary disease, unspecified; G47.00 Insomnia, unspecified; Z79.01 Long term (current) use of anticoagulants; Z00.00 Encounter for general adult medical examination without abnormal findings; Z53.20 Procedure and treatment not carried out because of patient's decision for unspecified reasons
CPT/HCPCS: 36415; 80053; 80061; 83036; 84439; 84443